=== PATIENT | female | born 1960 | race Caucasian/White ===

== ENCOUNTER 2017-11-01 12:41 | Emergency (ER) | payer MEDICARE, MEDICAID ==
[2017-11-01] MEDS ORDERED: Sodium Chloride 0.9% 10 ML Syringe FLUSH PRN (13:10)
--- NOTE | 2017-11-01 14:49 | EDM.PDOC ---
ED HPI GENERAL MEDICAL PROBLEM - General Chief Complaint: Skin Complaint Stated Complaint: ABSCESS Time Seen by Provider: 11/01/17 13:03 Source of Information: Reports: Patient, Provider History Limitations: Reports: Other (cognitive impairment ) - History of Present Illness INITIAL COMMENTS - FREE TEXT/NARRATIVE: 57 y/o F with hx cerebral palsy presents with R hip mass vs. abscess on MRI from clinic. Per caregiver, patient spends a lot of her time either seated or laying down due to mobility problems. Several months ago she had an ulcer under the R hip which seemed superficial and healed up. Recently, staff noticed there was a very firm mass under area of prior wound and it seemed painful to Sara. No fever. No weakness/fatigue/systemic symptoms. Dr. Bullock ordered a CT, which was abnormal and led to MRI, which was completed yesterday and showed a 5.9 x 3 x 5.9 cm mass, abscess vs. necrotic tumor. She was sent her for further evaluation. Hx limited by patient's cognitive impairment. - Related Data Allergies Allergy/AdvReac Type Severity Reaction Status Date / Time aspirin Allergy Other Verified 11/01/17 13:13 hydrochlorothiazide Allergy Other Verified 11/01/17 13:13 phenytoin sodium Allergy Other Verified 11/01/17 13:13 [From Dilantin] phenytoin sodium extended Allergy Other Verified 11/01/17 13:13 [From Dilantin] Home Meds: Home Meds Bisac-Evac 1 supp RECTAL DAILY PRN 11/01/17 [History] Calcium Carbonate [Oyster Shell Calcium] 500 mg PO TID 11/01/17 [History] Carbamide Peroxide [Murine Ear Drops] 6 drop EARBOTH WE 11/01/17 [History] Cholecalciferol (Vitamin D3) [Vitamin D3] 1 tab PO DAILY 11/01/17 [History] Cyanocobalamin (Vitamin B12) [Vitamin B12] 1 tab PO DAILY 11/01/17 [History] Erythromycin Base [Erythromycin 0.5% Ophth Oint] 1 drop EYEBOTH BEDTIME [History] Folic Acid/Mv,Fe,Other Min/Lut [Certa Plus] 1 tab PO DAILY 11/01/17 [History] Memantine HCl/Donepezil HCl [Namzaric 28 mg-10 mg Capsule] 1 tab PO DAILY [History] Omeprazole 1 tab PO DAILY 11/01/17 [History] PARoxetine HCl [Paroxetine HCl] 1 tab PO BEDTIME 11/01/17 [History] PEG 3350/Na Sulf,Bicarb,Cl/KCl [Peg 3350 Electrolyte] 17 gm PO Q72H 11/01/17 [ History] PHENobarbital [Phenobarbital] 1 tab PO BEDTIME 11/01/17 [History] PHENobarbital [Phenobarbital] 1 tab PO BEDTIME 11/01/17 [History] Senexon-S 2 tab PO BID 11/01/17 [History] levETIRAcetam [Keppra] 500 mg PO BID 11/01/17 [History] Past Medical History HEENT History: Reports: Other (See Below) Other HEENT History: conjunctivitis Cardiovascular History: Reports: Other (See Below) Other Cardiovascular History: immune thrombocytopenia, palpitations Respiratory History: Reports: Sleep Apnea, Other (See Below) Other Respiratory History: wears CPAP at night Gastrointestinal History: Reports: Gastritis MEASUREMENT ADVISOR History: Reports: Neurological History: Reports: Cerebral Palsy, Seizure Psychiatric History: Reports: Depression Endocrine/Metabolic History: Reports: Other (See Below) Other Endocrine/Metabolic History: thyroid nodule Other Dermatologic History: left finger amputation jones bite - Past Surgical History Musculoskeletal Surgical History: Reports: Other (See Below) Other Musculoskeletal Surgeries/Procedures:: finger and toe amputation due to exposure in 2007 Social & Family History - Tobacco Use Smoking Status *Q: Never Smoker - Caffeine Use Caffeine Use: Reports: None - Recreational Drug Use Recreational Drug Use: No ED ROS GENERAL - Review of Systems Review Of Systems: See Below Constitutional: Denies: Fever HEENT: Reports: No Symptoms Respiratory: Denies: Shortness of Breath Cardiovascular: Reports: No Symptoms Endocrine: Reports: No Symptoms GI/Abdominal: Reports: No Symptoms. Denies: Vomiting : Reports: No Symptoms Musculoskeletal: Reports: Leg Pain Skin: Reports: Lesions Neurological: Reports: No Symptoms Psychiatric: Reports: No Symptoms ED EXAM, SKIN/RASH Exam: See Below Exam Limited By: No Limitations General Appearance: Alert, WD/WN, No Apparent Distress Eye Exam: Bilateral Eye: Normal Inspection Ears: Normal External Exam Nose: Normal Inspection Throat/Mouth: Normal Inspection, Normal Oropharynx, Normal Voice Head: Atraumatic, Normocephalic Neck: Normal Inspection, Supple Respiratory/Chest: No Respiratory Distress Cardiovascular: Normal Peripheral Pulses GI/Abdominal: Soft, Non-Tender, No Distention. No: Rebound Back Exam: Normal Inspection Extremities: Other (RLE: small gluteal area skin abnormality - appears to be area of scarring, mildly erythematous, appears to be well-healed, no discharge or fluctuance. +underlying firm mass/induration. tender. No additional lower extremity abnormality. ) Course - Vital Signs Last Recorded V/S: Last Vital Signs Temp 36.9 C 11/01/17 13:10 Pulse 80 11/01/17 16:47 Resp 18 11/01/17 16:47 BP 120/84 11/01/17 16:47 Pulse Ox 99 11/01/17 16:47 - Orders/Labs/Meds Orders: Active Orders 24 hr Category Date Time Status Peripheral IV Care [RC] . DIRECTED Care 11/01/17 13:10 Active Peripheral IV Care [RC] . DIRECTED Care 11/01/17 13:10 Active Peripheral IV Insertion Adult [OM.PC] Routine Oth 11/01/17 13:10 Ordered Labs: Laboratory Tests 11/01/17 11/01/17 11/01/17 Range/Units 13:40 13:40 13:40 WBC 4.40 (3.98-10.04) K/mm3 RBC 4.30 (3.98-5.22) M/mm3 Hgb 13.3 (11.2-15.7) gm/L Hct 39.7 (34.1-44.9) % MCV 92.3 (79.4-94.8) fl MCH 30.9 (25.6-32.2) pg MCHC 33.5 (32.2-35.5) g/dl RDW Std Deviation 41.7 (36.4-46.3) fL Plt Count 125 L (182-369) K/mm3 MPV 10.5 (9.4-12.3) fl Neut % (Auto) 50.3 (34.0-71.1) % Lymph % (Auto) 38.0 (19.3-51.7) % [place] % (Auto) 9.3 (4.7-12.5) % Eos % (Auto) 2.0 (0.7-5.8) Baso % (Auto) 0.2 (0.1-1.2) % Neut # (Auto) 2.21 (1.56-6.13) K/mm3 Lymph # (Auto) 1.67 (1.18-3.74) K/mm3 [place] # (Auto) 0.41 H (0.24-0.36) K/mm3 Eos # (Auto) 0.09 (0.04-0.36) K/mm3 Baso # (Auto) 0.01 (0.01-0.08) K/mm3 ESR 14 (0-20) mm/hr PT 10.8 (9.5-12.1) SECONDS INR 0.99 Sodium (136-145) mEq/L Potassium (3.5-5.1) mEq/L Chloride (98-107) mEq/L Carbon Dioxide (21-32) mEq/L Anion Gap (5-15) BUN (7-18) mg/dL Creatinine (0.55-1.02) mg/dL Est Cr Clr Drug Dosing mL/min Estimated GFR (MDRD) (>60) mL/min BUN/Creatinine Ratio (14-18) Glucose (74-106) mg/dL Calcium (8.5-10.1) mg/dL Magnesium (1.8-2.4) mg/dl Total Bilirubin (0.2-1.0) mg/dL AST (15-37) U/L ALT (14-59) U/L Alkaline Phosphatase (46-116) U/L C-Reactive Protein (<1.0) mg/dL Total Protein (6.4-8.2) g/dl Albumin (3.4-5.0) g/dl Globulin gm/dL Albumin/Globulin Ratio (1-2) Blood Type Gel Antibody Screen 11/01/17 11/01/17 Range/Units 13:40 13:40 WBC (3.98-10.04) K/mm3 RBC (3.98-5.22) M/mm3 Hgb (11.2-15.7) gm/L Hct (34.1-44.9) % MCV (79.4-94.8) fl MCH (25.6-32.2) pg MCHC (32.2-35.5) g/dl RDW Std Deviation (36.4-46.3) fL Plt Count (182-369) K/mm3 MPV (9.4-12.3) fl Neut % (Auto) (34.0-71.1) % Lymph % (Auto) (19.3-51.7) % [place] % (Auto) (4.7-12.5) % Eos % (Auto) (0.7-5.8) Baso % (Auto) (0.1-1.2) % Neut # (Auto) (1.56-6.13) K/mm3 Lymph # (Auto) (1.18-3.74) K/mm3 [place] # (Auto) (0.24-0.36) K/mm3 Eos # (Auto) (0.04-0.36) K/mm3 Baso # (Auto) (0.01-0.08) K/mm3 ESR (0-20) mm/hr PT (9.5-12.1) SECONDS INR Sodium 144 (136-145) mEq/L Potassium 3.9 (3.5-5.1) mEq/L Chloride 104 (98-107) mEq/L Carbon Dioxide 35 H (21-32) mEq/L Anion Gap 8.9 (5-15) BUN 13 (7-18) mg/dL Creatinine 1.0 (0.55-1.02) mg/dL Est Cr Clr Drug Dosing 60.36 mL/min Estimated GFR (MDRD) 57 (>60) mL/min BUN/Creatinine Ratio 13.0 L (14-18) Glucose 77 (74-106) mg/dL Calcium 9.6 (8.5-10.1) mg/dL Magnesium 2.0 (1.8-2.4) mg/dl Total Bilirubin 0.3 (0.2-1.0) mg/dL AST 8 L (15-37) U/L ALT 18 (14-59) U/L Alkaline Phosphatase 128 H (46-116) U/L C-Reactive Protein 0.6 (<1.0) mg/dL Total Protein 7.6 (6.4-8.2) g/dl Albumin 4.0 (3.4-5.0) g/dl Globulin 3.6 gm/dL Albumin/Globulin Ratio 1.1 (1-2) Blood Type O NEGATIVE Gel Antibody Screen Negative Meds: Medications Discontinued Medications Generic Name Dose Route Start Last Admin Trade Name Freq PRN Reason Stop Dose Admin Sodium Chloride 10 ml 11/01/17 13:10 11/01/17 14:08 Saline Flush FLUSH 10 ml ASDIRECTED PRN Administration Keep Vein Open - Re-Assessments/Exams Free Text/Narrative Re-Assessment/Exam: 11/01/17 18:[address] Walton who was concerned about depth of mass and proximity to hip joint and lack of skin wound suggesting that origin of abnormalit may actually be the hip. Called [facility] (we don't have orthopedics coverage today) and their orthopedist reviewed the case and declined to accept the patient stating that since the bone was uninvolved it wasn't appropriate for his service. Discussed with [facility] surgeon who suggested possible IR eval. Discussed with IR attending who agreed that biopsy was reasonable next step, unable to schedule at this time as staff has left for the weekend. Meanwhile, patient is well appearing, has normal vitals, and negative inflammatory markers with WBC 4 and CRP 0.6. No evidence of systemic infection. This problem has likely been brewing for weeks to months. She doesn' t need antibiotics at this time. Re-discussed with Dr. Bullock, provided update , she will place order in [facility] system for IR eval/biopsy. Departure - Departure Time of Disposition: 15:59 Disposition: Home, Self-Care 01 Clinical Impression: Localized swelling, mass and lump, lower limb Qualifiers: Laterality: right Qualified Code(s): R22.41 - Localized swelling, mass and lump , right lower limb - Discharge Information Referrals: Elly Bullock MD [Primary Care Provider] - Forms: ED Department Discharge Additional Instructions: 1. Follow up with Dr. Bullock for further care, including scheduling Interventional Radiology follow up in [place] for aspiration and possible biopsy of R hip mass. Interventional Radiology is unable to schedule the appointment at this time because their scheduling team is gone until Saturday. Dr. Bullock will need to place an order and then the Interventional Radiology team will call to schedule. 2. Return if Sara has worsening swelling, pain, fever, or other concerning symptoms. - My Orders Last 24 Hours: My Active Orders 11/01/17 13:10 Peripheral IV Care [RC] . DIRECTED Peripheral IV Care [RC] . DIRECTED Peripheral IV Insertion Adult [OM.PC] Routine - Assessment/Plan Last 24 Hours: My Active Orders 11/01/17 13:10 Peripheral IV Care [RC] . DIRECTED Peripheral IV Care [RC] . DIRECTED Peripheral IV Insertion Adult [OM.PC] Routine
[2017-11-01 16:47] VITALS: BP 120/84
== END 2017-11-01 16:40 | disposition home or self-care (01) ==
LOC: JD.ED 12:41
DX: R22.41 Localized swelling, mass and lump, right lower limb (principal); Z88.6 Allergy status to analgesic agent; Z88.8 Allergy status to other drugs, medicaments and biological substances; Z79.899 Other long term (current) drug therapy
CPT/HCPCS: 36415; 80053; 83735; 85025; 85610; 85652; 86140; 86850; 86900; 86901; 99283; J7050

== ENCOUNTER 2018-08-28 15:37 | Emergency (ER) | payer MEDICARE, MEDICAID ==
[2018-08-28 16:04] VITALS: BP 112/77
--- NOTE | 2018-08-28 18:04 | EDM.PDOC ---
ED HPI GENERAL MEDICAL PROBLEM - General Chief Complaint: ENT Problem Stated Complaint: ABSCESS TOOTH AND FEVER Time Seen by Provider: 08/28/18 17:30 - History of Present Illness INITIAL COMMENTS - FREE TEXT/NARRATIVE: Patient is brought into the emergency room by one of her care nurses. She complains of dental pain. She complains of right upper dental pain getting worse over the last couple of days. She has follow-up with her dentist tomorrow morning. She's developing a little bit of right facial swelling. She was seen in minor care yesterday started on amoxicillin. She may have had a fever of approximately 101 at her halfway[address] Treatments TEST TECHNICIAN: Reports: Acetaminophen - Related Data Allergies Allergy/AdvReac Type Severity Reaction Status Date / Time aspirin Allergy Other Verified 08/28/18 16:04 hydrochlorothiazide Allergy Other Verified 08/28/18 16:04 phenytoin sodium Allergy Other Verified 08/28/18 16:04 [From Dilantin] phenytoin sodium extended Allergy Other Verified 08/28/18 16:04 [From Dilantin] Home Meds: Home Meds Bisac-Evac 1 supp RECTAL DAILY PRN 11/01/17 [History] Calcium Carbonate [Oyster Shell Calcium] 500 mg PO TID 11/01/17 [History] Carbamide Peroxide [Murine Ear Drops] 6 drop EARBOTH WE 11/01/17 [History] Cholecalciferol (Vitamin D3) [Vitamin D3] 1 tab PO DAILY 11/01/17 [History] Cyanocobalamin (Vitamin B12) [Vitamin B12] 1 tab PO DAILY 11/01/17 [History] Erythromycin Base [Erythromycin 0.5% Ophth Oint] 1 drop EYEBOTH BEDTIME [History] Folic Acid/Mv,Fe,Other Min/Lut [Certa Plus] 1 tab PO DAILY 11/01/17 [History] Memantine HCl/Donepezil HCl [Namzaric 28 mg-10 mg Capsule] 1 tab PO DAILY [History] Omeprazole 1 tab PO DAILY 11/01/17 [History] PARoxetine HCl [Paroxetine HCl] 1 tab PO BEDTIME 11/01/17 [History] PEG 3350/Na Sulf,Bicarb,Cl/KCl [Peg 3350 Electrolyte] 17 gm PO Q72H 11/01/17 [ History] PHENobarbital [Phenobarbital] 1 tab PO BEDTIME 11/01/17 [History] PHENobarbital [Phenobarbital] 1 tab PO BEDTIME 11/01/17 [History] Senexon-S 2 tab PO BID 11/01/17 [History] levETIRAcetam [Keppra] 500 mg PO BID 11/01/17 [History] Acetaminophen/HYDROcodone [Bartley 325-5 MG] 1 tab PO Q6H PRN #15 tablet 08/28/18 [Rx] Past Medical History HEENT History: Reports: Other (See Below) Other HEENT History: conjunctivitis Cardiovascular History: Reports: Other (See Below) Other Cardiovascular History: immune thrombocytopenia, palpitations Respiratory History: Reports: Sleep Apnea, Other (See Below) Other Respiratory History: wears CPAP at night Gastrointestinal History: Reports: Gastritis CLINICAL ASSOCIATE History: Reports: Neurological History: Reports: Cerebral Palsy, Seizure Psychiatric History: Reports: Depression Endocrine/Metabolic History: Reports: Other (See Below) Other Endocrine/Metabolic History: thyroid nodule Other Dermatologic History: left finger amputation jones bite - Past Surgical History Musculoskeletal Surgical History: Reports: Other (See Below) Other Musculoskeletal Surgeries/Procedures:: finger and toe amputation due to exposure in 2007 Social & Family History - Caffeine Use Caffeine Use: Reports: None ED ROS ENT - Review of Systems Review Of Systems: See Below Constitutional: Reports: Fever. Denies: Chills HEENT: Reports: Dental Pain Respiratory: Reports: No Symptoms Cardiovascular: Reports: No Symptoms GI/Abdominal: Reports: No Symptoms : Reports: No Symptoms Neurological: Reports: No Symptoms ED EXAM, ENT - Physical Exam Exam: See Below Exam Limited By: Other (Developmental delay) General Appearance: Alert, No Apparent Distress Ears: Normal External Exam, Normal Canal Nose: Normal Inspection Mouth/Throat: Other (She has some swelling along the right outer gumline upper. She has a draining abscess at the posterior aspect of the tooth involved this is exquisitely tender to touch nothing left to drain at this point) Head: Other (Mild right-sided facial swelling) Respiratory/Chest: No Respiratory Distress, Lungs Clear, Normal Breath Sounds Cardiovascular: Regular Rate, Rhythm, No Edema, No Murmur GI/Abdominal: Normal Bowel Sounds, Soft, Non-Tender Course - Vital Signs Last Recorded V/S: Last Vital Signs Temp 36.7 C 03/07/19 15:57 Pulse 85 08/28/18 15:57 Resp 18 08/28/18 15:57 BP 112/77 08/28/18 15:57 Pulse Ox 97 08/28/18 15:57 - Orders/Labs/Meds Meds: Medications Discontinued Medications Generic Name Dose Route Start Last Admin Trade Name Freq PRN Reason Stop Dose Admin Hydrocodone Bitart/Acetaminophen 1 tab 08/28/18 18:16 08/28/18 18:30 Bartley 325-5 Mg PO 08/28/18 18:17 1 tab ONETIME ONE Administration Ceftriaxone Sodium 1 gm 08/28/18 18:16 08/28/18 18:30 Rocephin IM 08/28/18 18:17 1 gm ONETIME ONE Administration - Re-Assessments/Exams Free Text/Narrative Re-Assessment/Exam: 08/28/18 19:26 Patient has had one Bartley by mouth and his received a gram of Rocephin IM she feels better she may have a little more facial erythema but this is a subtle change from it coming in. She would like to go home at this point and she is comfortable going home her nurse is comfortable taking her home the agree to follow-up with the dentist tomorrow morning as scheduled return to the emergency room with any questions problems or worsening condition. Departure - Departure Time of Disposition: 19:27 Disposition: Home, Self-Care 01 Clinical Impression: Dental abscess - Discharge Information Prescriptions: Acetaminophen/HYDROcodone [Bartley 325-5 MG] 1 tab PO Q6H PRN #15 tablet PRN Reason: Pain Instructions: Dental Abscess, [id number] Referrals: Elly Bullock MD [Primary Care Provider] - Forms: ED Department Discharge Additional Instructions: Return to emergency room if any questions problems worsening symptoms. Use the Bartley as needed for discomfort. Follow-up with the dentist first thing tomorrow morning as scheduled
[2018-08-28] MEDS ORDERED: Acetaminophen/HYDROcodone 325-5 MG Tab PO ONE (18:16)
[2018-08-28] MEDS ORDERED: cefTRIAXone 1 GM Vial IM ONE (18:16)
== END 2018-08-28 19:50 | disposition home or self-care (01) ==
LOC: JD.ED 15:37
DX: K04.7 Periapical abscess without sinus (principal); F32.9 Major depressive disorder, single episode, unspecified; Z79.899 Other long term (current) drug therapy; Z88.6 Allergy status to analgesic agent; Z88.8 Allergy status to other drugs, medicaments and biological substances
CPT/HCPCS: 96372; 99283; A9270; J0696

== ENCOUNTER 2019-08-17 10:48 | Day surgery (SDC) | payer MEDICARE, MEDICAID ==
[~2019-08-17 10:48] MED LIST: Lactated Ringers 1,000 ML IV SCH; Lidocaine 1%/Sod Bicarbonate in NS 8.4% 1 ML Syringe IDERM PRN; Sodium Chloride 0.9% 10 ML Syringe FLUSH PRN
--- NOTE | 2019-08-17 11:13 | PCM.PREANE ---
Preanesthetic Assessment - Anesthesia/Transfusion/Family Hx Anesthesia History: Prior Anesthesia Without Reaction (hx given by Vasquez) Transfusion History: No Prior Transfusion(s) - Review of Systems General: No Symptoms Pulmonary: No Symptoms Cardiovascular: No Symptoms Gastrointestinal: No Symptoms Neurological: No Symptoms Other: Reports: None - Physical Assessment NPO Status Date: 08/17/19 NPO Status Time: 04:00 ASA Class: 2 Mental Status: Alert & Oriented x3 Airway Class: Mallampati = 1 Dentition: Reports: Normal Dentition Thyro-Mental Finger Breadths: 3 Mouth Opening Finger Breadths: 3 ROM/Head Extension: Full Lungs: Clear to Auscultation, Normal Respiratory Effort - Allergies Allergies/Adverse Reactions: Allergies Allergy/AdvReac Type Severity Reaction Status Date / Time aspirin Allergy Other Verified 08/14/19 12:08 hydrochlorothiazide Allergy Other Verified 08/14/19 12:08 phenytoin sodium Allergy Other Verified 08/14/19 12:08 [From Dilantin] phenytoin sodium extended Allergy Other Verified 08/14/19 12:08 [From Dilantin] - Acknowledgements Anesthesia Type Planned: MAC Pt an Appropriate Candidate for the Planned Anesthesia: Yes Alternatives and Risks of Anesthesia Discussed w Pt/Guardian: Yes Pt/Guardian Understands and Agrees with Anesthesia Plan: Yes PreAnesthesia Questionnaire HEENT History: Reports: Other (See Below) Other HEENT History: conjunctivitis Cardiovascular History: Reports: Other (See Below) Other Cardiovascular History: immune thrombocytopenia, palpitations Respiratory History: Reports: Sleep Apnea, SOB, Other (See Below) Other Respiratory History: wears CPAP at night Gastrointestinal History: Reports: Gastritis, Other (See Below) Other Gastrointestinal History: della agarwal syndrome Genitourinary History: Reports: None FAMILY LIFE COUNSELOR History: Reports: Musculoskeletal History: Reports: Other (See Below) Other Musculoskeletal History: wheelchair dependent, 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, fibula fracture with repair, hand injury Neurological History: Reports: Cerebral Palsy, Seizure (last documented seizure ), Other (See Below) Other Neuro History: sierra syndrome, memory difficulties,right sided weakness Psychiatric History: Reports: Depression Endocrine/Metabolic History: Reports: Other (See Below) Other Endocrine/Metabolic History: thyroid nodule Hematologic History: 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 Immunologic History: Reports: None Oncologic (Cancer) History: Reports: None Other Dermatologic History: left finger amputation jones bite, right hip pressure ulcer stage II - Past Surgical History Head Surgeries/Procedures: Reports: None Respiratory Surgical History: Reports: None GI Surgical History: Reports: Colonoscopy, EGD Female Surgical History: Reports: Breast Biopsy, Tubal Ligation Male Surgical History: Reports: None Musculoskeletal Surgical History: Reports: Other (See Below) Other Musculoskeletal Surgeries/Procedures:: left thumb amputation, left ankle fracture with surgical repair, right shoulder surgery right foot surgery Oncologic Surgical History: Reports: None - SUBSTANCE USE Smoking Status *Q: Never Smoker Recreational Drug Use History: No - HOME MEDS Home Medications: Home Meds Calcium Carbonate [Oyster Shell Calcium] 500 mg PO TID 11/01/17 [History] Carbamide Peroxide [Murine Ear Drops] 6 drop EARBOTH WE 11/01/17 [History] Cholecalciferol (Vitamin D3) [Vitamin D3] 1,000 unit PO DAILY 11/01/17 [History] Erythromycin Base [Erythromycin 0.5% Ophth Oint] 1 drop EYEBOTH BEDTIME [History] Memantine HCl/Donepezil HCl [Namzaric 28 mg-10 mg Capsule] 1 tab PO BEDTIME 05/11 [History] Omeprazole 1 tab PO DAILY PRN 11/01/17 [History] PARoxetine HCl [Paroxetine HCl] 30 mg PO BEDTIME 11/01/17 [History] PHENobarbitaL [Phenobarbital] 64.8 mg PO BEDTIME 11/01/17 [History] PHENobarbitaL [Phenobarbital] 97.2 mg PO BEDTIME 11/01/17 [History] levETIRAcetam [Keppra] 500 mg PO BID 11/01/17 [History] Acetaminophen [Tylenol] 650 mg PO Q4H PRN 08/14/19 [History] Cyanocobalamin (Vitamin B-12) [Vitamin B-12] 1,000 mcg PO DAILY 08/14/19 [ History] Latanoprost 1 drop EYEBOTH DAILY 08/14/19 [History] Multivitamin [Daily Keaton] 1 tab PO DAILY 08/14/19 [History] Vortioxetine Hydrobromide [Trintellix] 20 mg PO DAILY 08/14/19 [History] bisacodyL [Dulcolax] 10 mg RECTAL DAILY PRN 02/21/20 [History] polyethylene glycoL 3350 [MiraLAX] 1 dose PO Q72H 08/14/19 [History] - CURRENT (IN HOUSE) MEDS Current Meds: Current Medications Lactated Ringer's (Ringers, Lactated) 1,000 mls @ 125 mls/hr IV ASDIRECTED TERRANCE Stop: 08/17/19 23:00 Lidocaine/Sodium Bicarbonate (Buffered Lidocaine 1% In Ns 8.4%) 0.25 ml IDERM ONETIME PRN PRN Reason: Prior to IV Start Stop: 08/17/19 18:00 Sodium Chloride (Saline Flush) 10 ml FLUSH ASDIRECTED PRN PRN Reason: Keep Vein Open Stop: 08/17/19 18:00
[2019-08-17] MEDS ORDERED: Propofol 200 MG/20 ML SDV ONE ×2 (11:16→11:17)
--- NOTE | 2019-08-17 12:49 | PCM48HPAN ---
Post Anesthesia Note - EVALUATION WITHIN 48HRS OF ANESTHETIC Vital Signs in Normal Range: Yes Patient Participated in Evaluation: Yes Respiratory Function Stable: Yes Airway Patent: Yes Cardiovascular Function Stable: Yes Hydration Status Stable: Yes Pain Control Satisfactory: Yes Nausea and Vomiting Control Satisfactory: Yes Mental Status Recovered: Yes Vital Signs: Last Vital Signs Temp 36.7 C 08/17/19 10:50 Pulse 69 08/17/19 10:50 Resp 16 08/17/19 10:50 BP 146/87 H 08/17/19 10:50 Pulse Ox 98 08/17/19 10:50
[2019-08-17 13:12] VITALS: BP 129/78; PULSE 64
--- NOTE | 2019-08-17 13:40 | PROC ---
DATE OF OPERATION: 08/17/2019 SURGEON: Jez Ponce MD PREOPERATIVE DIAGNOSIS: Need for screening colonoscopy. POSTOPERATIVE DIAGNOSIS: Melanosis coli. PROCEDURE: Colonoscopy. ANESTHESIA: Monitored anesthesia care. COMPLICATION: None. INDICATION: The patient is a 59-year-old female who presented to clinic for evaluation for screening colonoscopy. The patient has cerebral palsy and seizures. She was evaluated in clinic and deemed appropriate for screening colonoscopy. Informed consent was obtained from the burr sander after discussing risks, benefits, and alternatives. DETAILS OF PROCEDURE: The patient was taken to the procedure room, placed in left lateral decubitus position. Following induction of monitored anesthesia care, we began the procedure with a perianal examination, which was normal. Digital rectal exam was normal. The scope was inserted and taken all the way to the cecum. Ileocecal valve as well as the appendiceal orifice were photographed. There was extensive melanosis coli at the cecum, extending all the way to the sigmoid colon. Biopsy was taken of the cecum for confirmation. Then, examination of the entire colon with colonoscopy with careful viewing of the colonic mucosa did not reveal any polyps. Prep was good enough to be able to identify any small polyps. Retroflexion in the rectum did not reveal any abnormalities. Air was suctioned from the colon, and the colonoscopy was concluded with removal of the scope from the colon. This marked the end of the procedure. The patient will be observed for a few hours and discharged back to her alf today. Recommendation is for her to follow up with another colonoscopy in 10 years since this colonoscopy was normal. We will call her with confirmation of melanosis coli. If this is confirmed, the patient will be advised to continue to use laxative only if necessary since melanosis coli is a benign condition. MMODAL /[id number] TEO
== END 2019-08-17 13:49 | disposition home or self-care (01) ==
LOC: JD.SDS 10:48
PROVIDERS: ATTEND Surgery
DX: Z12.11 Encounter for screening for malignant neoplasm of colon (principal); K63.89 Other specified diseases of intestine; G80.9 Cerebral palsy, unspecified; R56.9 Unspecified convulsions; F32.9 Major depressive disorder, single episode, unspecified; G47.33 Obstructive sleep apnea (adult) (pediatric); D69.3 Immune thrombocytopenic purpura; Z99.89 Dependence on other enabling machines and devices; Z98.890 Other specified postprocedural states; Z79.899 Other long term (current) drug therapy; Z88.8 Allergy status to other drugs, medicaments and biological substances
CPT/HCPCS: 36415; 45380; 85025; J2704; J7120; 00812

== ENCOUNTER 2019-10-13 15:05 | Inpatient (IN) | payer MEDICARE, MEDICAID ==
[2019-10-13] MEDS ORDERED: Docusate Sodium 100 MG Cap PO PRN (15:49)
[2019-10-13] MEDS ORDERED: Sodium Chloride 0.9% 10 ML Syringe FLUSH PRN (15:49)
[2019-10-13] MEDS ORDERED: Piperacillin/Tazobactam 4.5 GM in Sodium Chloride 0.9% 100 ML IV ONE (16:30)
[2019-10-13] MEDS ORDERED: Piperacillin/Tazobactam 4.5 GM in Sodium Chloride 0.9% 100 ML IV SCH (16:30)
[2019-10-13] MEDS ORDERED: Bisacodyl 10 MG Supp RECTAL PRN (16:48)
[2019-10-13] MEDS ORDERED: Pantoprazole 40 MG Tab.CR PO PRN (16:48)
[2019-10-13] MEDS ORDERED: Magnesium Hydroxide 400 MG/5 ML Susp 30 ML Cup PO PRN (16:48)
[2019-10-13] MEDS ORDERED: Polyethylene Glycol 3350 Powder 17 GM Packet PO SCH (17:00)
[2019-10-13] MEDS ORDERED: guaiFENesin/Dextromethorphan 100-10 MG/5 ML Soln 5 ML Cup PO PRN (17:14)
--- NOTE | 2019-10-13 17:27 | PCM.HP.2 ---
H&P History of Present Illness - General Date of Service: 10/13/19 Admit Problem/Dx: Admission Diagnosis/Problem Admission Diagnosis/Problem Wound abscess Source of Information: Patient History Limitations: Reports: Altered Mental Status - History of Present Illness Initial Comments - Free Text/Narative: The patient developed a left hip wound 2 weeks ago. I saw the patient in my office and found that she had a phlegmon in the left hip. I initiated her on antibiotics. However, the patient's wound worsened. She came to see me today, she had an abscess in the area. I&D was performed in the office and the patient is admitted for IV antibiotics. Onset of Symptoms: Reports: Gradual Duration of Symptoms: Reports: Getting Worse Location: Reports: Lower Extremity, Left Quality: Reports: Ache, Sharp Severity: Severe Improves with: Reports: Immobilization Worsens with: Reports: Other (touch), Movement Associated Symptoms: Reports: No Other Symptoms - Related Data Allergies/Adverse Reactions: Allergies Allergy/AdvReac Type Severity Reaction Status Date / Time aspirin Allergy Other Verified 08/14/19 12:08 hydrochlorothiazide Allergy Other Verified 08/14/19 12:08 phenytoin sodium Allergy Other Verified 08/14/19 12:08 [From Dilantin] phenytoin sodium extended Allergy Other Verified 08/14/19 12:08 [From Dilantin] Home Medications: Home Meds Calcium Carbonate [Oyster Shell Calcium] 500 mg PO TID 11/01/17 [History] Carbamide Peroxide [Murine Ear Drops] 6 drop EARBOTH WE 11/01/17 [History] Cholecalciferol (Vitamin D3) [Vitamin D3] 1,000 unit PO DAILY 11/01/17 [History] Erythromycin Base [Erythromycin 0.5% Ophth Oint] 1 drop EYEBOTH BEDTIME [History] Memantine HCl/Donepezil HCl [Namzaric 28 mg-10 mg Capsule] 1 tab PO BEDTIME 05/11 [History] Omeprazole 1 tab PO DAILY PRN 11/01/17 [History] PARoxetine HCL [Paroxetine HCl] 30 mg PO BEDTIME 11/01/17 [History] PHENobarbitaL [Phenobarbital] 64.8 mg PO BEDTIME 11/01/17 [History] PHENobarbitaL [Phenobarbital] 97.2 mg PO BEDTIME 11/01/17 [History] levETIRAcetam [Keppra] 500 mg PO BID 11/01/17 [History] Acetaminophen [Tylenol] 650 mg PO Q4H PRN 08/14/19 [History] Cyanocobalamin (Vitamin B-12) [Vitamin B-12] 1,000 mcg PO DAILY 08/14/19 [ History] Latanoprost 1 drop EYEBOTH BEDTIME 08/14/19 [History] bisacodyL [Dulcolax] 10 mg RECTAL DAILY PRN 08/14/19 [History] polyethylene glycoL 3350 [MiraLAX] 1 dose PO Q72H 08/14/19 [History] Dextromethorphan/guaiFENesin [Robitussin DM] 20 ml PO Q6H PRN 10/13/19 [History] Mag Hydrox/Aluminum Hyd/Simeth [Mylanta Maximum Strength Liq] 2 - 4 tsp PO Q2HR PRN 10/13/19 [History] Magnesium Hydroxide [Milk of Magnesia] 2 - 4 tbsp PO DAILY PRN 10/13/19 [History ] Multivits w-Min/Ferrous Gluc [Certavite-Antioxidant Liquid] 1 tab PO DAILY 10/12 [History] Pseudoephedrine [Sudogest] 1 tab PO Q4HR PRN 10/13/19 [History] Sennosides/Docusate Sodium [Senna-S 8.6-50 mg Tablet] 17.2 mg PO BID 10/13/19 [ History] Sulfamethoxazole/Trimethoprim [Bactrim Ds Tablet] 1 tab PO BID 10/13/19 [History ] Past Medical History HEENT History: Reports: Other (See Below) Other HEENT History: conjunctivitis Cardiovascular History: Reports: Other (See Below) Other Cardiovascular History: immune thrombocytopenia, palpitations Respiratory History: Reports: Sleep Apnea, SOB, Other (See Below) Other Respiratory History: wears CPAP at night Gastrointestinal History: Reports: Gastritis, Other (See Below) Other Gastrointestinal History: della agarwal syndrome Genitourinary History: Reports: None [employer] History: Reports: Musculoskeletal History: Reports: Other (See Below) Other Musculoskeletal History: wheelchair dependent, 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, fibula fracture with repair, hand injury Neurological History: Reports: Cerebral Palsy, Seizure, Other (See Below) Other Neuro History: sierra syndrome, memory difficulties,right sided weakness Psychiatric History: Reports: Dementia, Depression Endocrine/Metabolic History: Reports: Other (See Below) Other Endocrine/Metabolic History: thyroid nodule Hematologic History: 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 Immunologic History: Reports: None Oncologic (Cancer) History: Reports: None Other Dermatologic History: left fingers amputation jones bite, right hip pressure ulcer stage II - Infectious Disease History Infectious Disease History: Reports: Measles - Past Surgical History Head Surgeries/Procedures: Reports: None HEENT Surgical History: Reports: None Cardiovascular Surgical History: Reports: None Respiratory Surgical History: Reports: None GI Surgical History: Reports: Colonoscopy, EGD Female Surgical History: Reports: Breast Biopsy, Tubal Ligation Endocrine Surgical History: Reports: None Neurological Surgical History: Reports: None Musculoskeletal Surgical History: Reports: Other (See Below) Other Musculoskeletal Surgeries/Procedures:: left digits all amputated, left ankle fracture with surgical repair, right shoulder surgery right foot surgery Oncologic Surgical History: Reports: None Social & Family History - Family History Family Medical History: Noncontributory - Tobacco Use Smoking Status *Q: Former Smoker Years of Tobacco use: 5 Packs/Tins Daily: 0.5 Used Tobacco, but Quit: Yes Month/Year Tobacco Last Used: 06/1974 Second Hand Smoke Exposure: No - Caffeine Use Caffeine Use: Reports: Coffee - Recreational Drug Use Recreational Drug Use: No H&P Review of Systems - Review of Systems: Review Of Systems: See Below General: Reports: No Symptoms HEENT: Reports: No Symptoms Pulmonary: Reports: No Symptoms Cardiovascular: Reports: No Symptoms Gastrointestinal: Reports: No Symptoms Genitourinary: Reports: No Symptoms Musculoskeletal: Reports: No Symptoms Skin: Reports: Erythema (left hip), Wound (left hip) Psychiatric: Reports: No Symptoms Neurological: Reports: No Symptoms Exam - Exam Exam: See Below - Vital Signs Vital Signs: Last Vital Signs Temp 97.7 F 10/13/19 15:26 Pulse 59 L 10/13/19 15:50 Resp BP 124/83 10/13/19 15:22 Pulse Ox 92 L 10/13/19 15:50 Weight: 63.231 kg - Exam General: Alert, Other (largely non-verbal) Lungs: Clear to Auscultation, Normal Respiratory Effort Cardiovascular: Regular Rate, Regular Rhythm, Normal S1, Normal S2 GI/Abdominal Exam: Soft, Non-Tender, No Organomegaly, No Distention Skin: Wound (left hip, erythema, induration, packed wound. Induration is 10 x 10 cm.) - Patient Data Lab Results Last 24 hrs: Laboratory Results - last 24 hr 10/13/19 Range/Units 16:53 WBC 6.01 (3.98-10.04) K/mm3 RBC 3.62 L (3.98-5.22) M/mm3 Hgb 11.2 D (11.2-15.7) gm/dl Hct 34.7 (34.1-44.9) % MCV 95.9 H (79.4-94.8) fl MCH 30.9 (25.6-32.2) pg MCHC 32.3 (32.2-35.5) g/dl RDW Std Deviation 41.8 (36.4-46.3) fL Plt Count 231 D (182-369) K/mm3 MPV 9.5 (9.4-12.3) fl Neut % (Auto) 59.1 (34.0-71.1) % Lymph % (Auto) 30.9 (19.3-51.7) % [place] % (Auto) 6.7 (4.7-12.5) % Eos % (Auto) 2.7 (0.7-5.8) Baso % (Auto) 0.3 (0.1-1.2) % Neut # (Auto) 3.55 (1.56-6.13) K/mm3 Lymph # (Auto) 1.86 (1.18-3.74) K/mm3 [place] # (Auto) 0.40 H (0.24-0.36) K/mm3 Eos # (Auto) 0.16 (0.04-0.36) K/mm3 Baso # (Auto) 0.02 (0.01-0.08) K/mm3 Result Diagrams: 10/13/19 16:53 Sepsis Event Note - Focused Exam Vital Signs: Vital Signs Temp Pulse BP Pulse Ox 10/13/19 15:50 59 L 92 L 10/13/19 15:26 97.7 F 10/13/19 15:22 124/83 Date Exam was Performed: 10/13/19 Time Exam was Performed: 17:21 Problem List Initiated/Reviewed/Updated: No Orders Last 24hrs: Active Orders 24 hr Category Date Time Status Patient Status [ADT] Routine ADT 10/13/19 15:49 Active Antiembolic Devices [RC] BID Care 10/13/19 15:54 Active Intake and Output [RC] 04,16 Care 10/13/19 15:51 Active Oxygen Therapy [RC] PRN Care 10/13/19 15:49 Active VTE/DVT Education [RC] BID Care 10/13/19 15:49 Active Vital Signs [RC] Q4HR Care 10/13/19 15:49 Active Wound Care [RC] 04,,, Care 10/14/19 08:00 Active Regular Diet [DIET] Diet 10/13/19 Dinner Active CBC WITH AUTO DIFF [HEME] DAILY Lab 10/14/19 15:49 Ordered CBC WITH AUTO DIFF [HEME] DAILY Lab 10/15/19 15:49 Ordered CBC WITH AUTO DIFF [HEME] DAILY Lab 10/16/19 15:49 Ordered CBC WITH AUTO DIFF [HEME] DAILY Lab 10/17/19 15:49 Ordered COMPREHENSIVE METABOLIC PN,CMP [CHEM] DAILY Lab 10/13/19 16:53 Received COMPREHENSIVE METABOLIC PN,CMP [CHEM] DAILY Lab 10/14/19 16:00 Ordered COMPREHENSIVE METABOLIC PN,CMP [CHEM] DAILY Lab 10/15/19 16:00 Ordered COMPREHENSIVE METABOLIC PN,CMP [CHEM] DAILY Lab 10/16/19 16:00 Ordered COMPREHENSIVE METABOLIC PN,CMP [CHEM] DAILY Lab 10/17/19 16:00 Ordered Acetaminophen/HYDROcodone [[place] 325-5 MG] Med 10/13/19 15:49 Active 1 tab PO Q4H PRN Cholecalciferol (Vitamin D3) [Vitamin D3] Med 10/14/19 09:00 Active 25 mcg PO DAILY Cyanocobalamin (Vitamin B12) [Vitamin B12] Med 10/14/19 09:00 Active 1,000 mcg PO DAILY D5 1/2 NS w/ 20 mEq/L KCl 1,000 ml Med 10/13/19 16:15 Active IV ASDIRECTED Dextromethorphan/guaiFENesin [Robitussin DM] Med 10/13/19 17:14 Active 10 ml PO Q4H PRN Docusate Sodium [Colace] Med 10/13/19 15:49 Active 100 mg PO BID PRN Docusate Sodium/Sennosides [Senna Plus] Med 10/13/19 21:00 Active 1 tab PO BID Erythromycin Base [Erythromycin 0.5% Ophth Oint] Med 10/13/19 21:00 Active 0 gm EYEBOTH BEDTIME Heparin Sodium Med 10/13/19 16:00 Active 5,000 units SUBCUT Q8H Latanoprost [Xalatan 0.005% Ophth Soln] Med 10/13/19 21:00 Active 0 ml EYEBOTH BEDTIME Magnesium Hydroxide [Milk of Magnesia] Med 10/13/19 16:48 Active 30 ml PO DAILY PRN Memantine HCl/Donepezil HCl [Namzaric 28 mg-10 mg Med 10/13/19 21:00 Active Capsule] 1 tab PO BEDTIME PARoxetine [Paxil] Med 10/13/19 21:00 Active 30 mg PO BEDTIME PHENobarbitaL Med 10/13/19 21:00 Ordered 64.8 mg PO BEDTIME PHENobarbitaL [Phenobarbital] Med 10/13/19 21:00 Ordered 97.2 mg PO BEDTIME Pantoprazole [ProTONIX] Med 10/13/19 16:48 Active 40 mg PO DAILY PRN Piperacillin/Tazobactam [Piperacil-Tazobact] 4.5 gm Med 10/14/19 00:30 Active Sodium Chloride 0.9% [Normal Saline] 100 ml IV Q8H Sodium Chloride 0.9% [Saline Flush] Med 10/13/19 15:49 Active 10 ml FLUSH ASDIRECTED PRN Vancomycin [Vancocin] 1 gm Med 10/13/19 16:00 Active Sodium Chloride 0.9% [Normal Saline (AdvBag)] 250 ml IV Q12H bisacodyL [Dulcolax] Med 10/13/19 16:48 Active 10 mg RECTAL DAILY PRN levETIRAcetam [Keppra] Med 10/13/19 21:00 Active 500 mg PO BID polyethylene glycoL 3350 [MiraLAX] Med 10/13/19 17:00 Ordered DOSE gm PO Q72H Peripheral IV Insertion Adult [OM.PC] Routine Oth 10/13/19 15:49 Ordered Sequential Compression Device [OM.PC] Per Unit Routine Oth 10/13/19 15:52 Ordered Resuscitation Status Routine Resus Stat 10/13/19 15:49 Ordered Medication Orders Hydrocodone Bitart/Acetaminophen ([place] 325-5 Mg) 1 tab PO Q4H PRN PRN Reason: Pain (moderate 4-6) Bisacodyl (Dulcolax) 10 mg RECTAL DAILY PRN PRN Reason: Constipation Cholecalciferol (Vitamin D3) 25 mcg PO DAILY [facility] Cyanocobalamin (Vitamin B12) 1,000 mcg PO DAILY [facility] Docusate Sodium (Colace) 100 mg PO BID PRN PRN Reason: Constipation Erythromycin (Erythromycin 0.5% Ophth Oint) 0 gm EYEBOTH BEDTIME [facility] Guaifenesin/Phenylephrine HCl (Robitussin Dm) 10 ml PO Q4H PRN PRN Reason: COUGH Heparin Sodium (Porcine) (Heparin Sodium) 5,000 units SUBCUT Q8H [facility] Piperacillin Sod/Tazobactam (Sod 4.5 gm/ Sodium Chloride) 100 mls @ 25 mls/hr IV Q8H [facility] Vancomycin HCl 1 gm/ Sodium (Chloride) 250 mls @ 250 mls/hr IV Q12H [facility] Potassium Chloride/Dextrose/Sod Cl (D5 1/2 Ns W/ 20 Meq/L Kcl) 1,000 mls @ 75 mls/hr IV ASDIRECTED [facility] Latanoprost (Xalatan 0.005% Ophth Soln) 0 ml EYEBOTH BEDTIME [facility] Levetiracetam (Keppra) 500 mg PO BID [facility] Magnesium Hydroxide (Milk Of Magnesia) 30 ml PO DAILY PRN PRN Reason: Constipation Memantine Hcl/Donepezil 28 Mg-10 Mg Capsule 1 tab PO BEDTIME [facility] Non-Formulary Medication (Phenobarbital) 64.8 mg PO BEDTIME [facility] Non-Formulary Medication (Phenobarbital [Phenobarbital]) 97.2 mg PO BEDTIME [facility] Pantoprazole Sodium (Protonix) 40 mg PO DAILY PRN PRN Reason: gi upset Paroxetine HCl (Paxil) 30 mg PO BEDTIME [facility] Polyethylene Glycol (Miralax) gm PO Q72H [facility] Senna/Docusate Sodium (Senna Plus) 1 tab PO BID [facility] Sodium Chloride (Saline Flush) 10 ml FLUSH ASDIRECTED PRN PRN Reason: Keep Vein Open Assessment/Plan Comment:: Patient has a left hip wound and abscess. She underwent an I&D in the office. She needs IV abx. - Start Vanc and Zosyn - Reg diet - Resume Home meds - Dressing changes - most gauze Q12h - We will cotninue to monitor. - Mortality Measure Prognosis:: Good
[2019-10-13] MEDS: Heparin Sodium 5,000 Units/ML Vial SUBCUT SCH (17:53)
[2019-10-13] MEDS: D5 1/2 NS w/ 20 mEq/L KCl 1,000 ML IV SCH (17:55)
--- NOTE | 2019-10-13 20:38 | PCM.SN.2 ---
- Free Text/Narrative Note: 1999 called to room for IV start attempt X 3 #22 ga. right wrist good flush good blood return out room at 2034
[2019-10-13] MEDS ORDERED: PHENOBARBITAL 97.2 MG PO SCH (21:00)
[2019-10-13] MEDS: Latanoprost 0.005% Ophth Soln 2.5 ML Bottle EYEBOTH SCH (21:16)
[2019-10-13] MEDS: PHENobarbital 32.4 MG Tab PO SCH (21:17)
[2019-10-13] MEDS: Erythromycin Base 0.5% Ophth Oint 1 GM Tube EYEBOTH SCH (21:23)
[2019-10-13] MEDS: levETIRAcetam 500 MG Tab PO SCH (21:24)
[2019-10-13] MEDS: DONEPEZIL PO SCH (22:06)
[2019-10-13] MEDS: MEMANTINE PO SCH (22:06)
[2019-10-14] MEDS: Piperacillin/Tazobactam 4.5 GM in Sodium Chloride 0.9% 100 ML IV SCH ×3 (00:35→20:35)
[2019-10-14] MEDS: Heparin Sodium 5,000 Units/ML Vial SUBCUT SCH ×3 (00:35→16:47)
[2019-10-14] MEDS: Acetaminophen/HYDROcodone 325-5 MG Tab PO PRN ×3 (05:47→21:08)
[2019-10-14] MEDS: Cyanocobalamin (Vitamin B12) 1,000 MCG Tab PO SCH (09:15)
[2019-10-14] MEDS: levETIRAcetam 500 MG Tab PO SCH ×2 (09:16→20:28)
[2019-10-14] MEDS: Cholecalciferol (Vitamin D3) 25 MCG Tab PO SCH (09:16)
[2019-10-14] MEDS: D5 1/2 NS w/ 20 mEq/L KCl 1,000 ML IV SCH (09:18)
--- NOTE | 2019-10-14 18:18 | PCM.PN ---
- General Info Date of Service: 10/14/19 Admission Dx/Problem (Free Text): Admission Diagnosis/Problem Admission Diagnosis/Problem Wound abscess Functional Status: Reports: Pain Controlled, Tolerating Diet, Urinating - Review of Systems General: Reports: No Symptoms HEENT: Reports: No Symptoms Pulmonary: Reports: No Symptoms Cardiovascular: Reports: No Symptoms Gastrointestinal: Reports: No Symptoms Genitourinary: Reports: No Symptoms Musculoskeletal: Reports: Other (left hip wound) - Patient Data Vitals - Most Recent: Last Vital Signs Temp 97.7 F 10/14/19 14:23 Pulse 91 10/14/19 14:23 Resp 16 10/14/19 14:23 BP 110/59 L 10/14/19 14:23 Pulse Ox 100 10/14/19 14:23 Weight - Most Recent: 65.317 kg I&O - Last 24 Hours: Intake & Output 10/14/19 10/14/19 10/14/19 06:59 14:59 22:59 Intake Total 1144 240 360 Output Total 4 Balance 1140 240 360 Lab Results Last 24 Hours: Laboratory Results - last 24 hr 10/13/19 10/13/19 10/14/19 Range/Units 16:53 18:45 06:10 WBC 5.21 (3.98-10.04) K/mm3 RBC 3.35 L (3.98-5.22) M/mm3 Hgb 10.4 L (11.2-15.7) gm/dl Hct 32.1 L (34.1-44.9) % MCV 95.8 H (79.4-94.8) fl MCH 31.0 (25.6-32.2) pg MCHC 32.4 (32.2-35.5) g/dl RDW Std Deviation 41.0 (36.4-46.3) fL Plt Count 226 (182-369) K/mm3 MPV 9.4 (9.4-12.3) fl Neut % (Auto) 47.4 (34.0-71.1) % Lymph % (Auto) 42.2 (19.3-51.7) % [place] % (Auto) 6.5 (4.7-12.5) % Eos % (Auto) 3.3 (0.7-5.8) Baso % (Auto) 0.4 (0.1-1.2) % Neut # (Auto) 2.47 (1.56-6.13) K/mm3 Lymph # (Auto) 2.20 (1.18-3.74) K/mm3 [place] # (Auto) 0.34 (0.24-0.36) K/mm3 Eos # (Auto) 0.17 (0.04-0.36) K/mm3 Baso # (Auto) 0.02 (0.01-0.08) K/mm3 Sodium 143 (136-145) mEq/L Potassium 4.1 (3.5-5.1) mEq/L Chloride 104 (98-107) mEq/L Carbon Dioxide 30 (21-32) mEq/L Anion Gap 13.1 (5-15) BUN 17 (7-18) mg/dL Creatinine 0.9 (0.55-1.02) mg/dL Est Cr Clr Drug Dosing 65.45 mL/min Estimated GFR (MDRD) > 60 (>60) mL/min BUN/Creatinine Ratio 18.9 H (14-18) Glucose 75 (74-106) mg/dL Calcium 9.2 (8.5-10.1) mg/dL Total Bilirubin 0.1 L (0.2-1.0) mg/dL AST 13 L (15-37) U/L ALT 21 (14-59) U/L Alkaline Phosphatase 100 (46-116) U/L Total Protein 7.1 (6.4-8.2) g/dl Albumin 3.0 L (3.4-5.0) g/dl Globulin 4.1 gm/dL Albumin/Globulin Ratio 0.7 L (1-2) MRSA (PCR) Negative 10/14/19 Range/Units 06:10 WBC (3.98-10.04) K/mm3 RBC (3.98-5.22) M/mm3 Hgb (11.2-15.7) gm/dl Hct (34.1-44.9) % MCV (79.4-94.8) fl MCH (25.6-32.2) pg MCHC (32.2-35.5) g/dl RDW Std Deviation (36.4-46.3) fL Plt Count (182-369) K/mm3 MPV (9.4-12.3) fl Neut % (Auto) (34.0-71.1) % Lymph % (Auto) (19.3-51.7) % [place] % (Auto) (4.7-12.5) % Eos % (Auto) (0.7-5.8) Baso % (Auto) (0.1-1.2) % Neut # (Auto) (1.56-6.13) K/mm3 Lymph # (Auto) (1.18-3.74) K/mm3 [place] # (Auto) (0.24-0.36) K/mm3 Eos # (Auto) (0.04-0.36) K/mm3 Baso # (Auto) (0.01-0.08) K/mm3 Sodium 143 (136-145) mEq/L Potassium 3.9 (3.5-5.1) mEq/L Chloride 106 (98-107) mEq/L Carbon Dioxide 27 (21-32) mEq/L Anion Gap 13.9 (5-15) BUN 14 (7-18) mg/dL Creatinine 1.0 (0.55-1.02) mg/dL Est Cr Clr Drug Dosing 58.91 mL/min Estimated GFR (MDRD) 57 (>60) mL/min BUN/Creatinine Ratio 14.0 (14-18) Glucose 94 (74-106) mg/dL Calcium 8.6 (8.5-10.1) mg/dL Total Bilirubin 0.2 (0.2-1.0) mg/dL AST 14 L (15-37) U/L ALT 19 (14-59) U/L Alkaline Phosphatase 83 (46-116) U/L Total Protein 6.4 (6.4-8.2) g/dl Albumin 2.7 L (3.4-5.0) g/dl Globulin 3.7 gm/dL Albumin/Globulin Ratio 0.7 L (1-2) MRSA (PCR) Med Orders - Current: Current Medications Hydrocodone Bitart/Acetaminophen ([place] 325-5 Mg) 1 tab PO Q4H PRN PRN Reason: Pain (moderate 4-6) Last Admin: 10/14/19 13:15 Dose: 1 tab Bisacodyl (Dulcolax) 10 mg RECTAL DAILY PRN PRN Reason: Constipation Cholecalciferol (Vitamin D3) 25 mcg PO DAILY [facility] Last Admin: 10/14/19 09:16 Dose: 25 mcg Cyanocobalamin (Vitamin B12) 1,000 mcg PO DAILY [facility] Last Admin: 10/14/19 09:15 Dose: 1,000 mcg Docusate Sodium (Colace) 100 mg PO BID PRN PRN Reason: Constipation Erythromycin (Erythromycin 0.5% Ophth Oint) 0 gm EYEBOTH BEDTIME [facility] Last Admin: 10/13/19 21:23 Dose: 1 applic Guaifenesin/Phenylephrine HCl (Robitussin Dm) 10 ml PO Q4H PRN PRN Reason: COUGH Heparin Sodium (Porcine) (Heparin Sodium) 5,000 units SUBCUT Q8H [facility] Last Admin: 10/14/19 16:47 Dose: 5,000 units Piperacillin Sod/Tazobactam (Sod 4.5 gm/ Sodium Chloride) 100 mls @ 25 mls/hr IV Q8H [facility] Last Admin: 10/14/19 09:16 Dose: 25 mls/hr Vancomycin HCl 1 gm/ Sodium (Chloride) 250 mls @ 250 mls/hr IV Q12H [facility] Last Admin: 10/14/19 16:48 Dose: 250 mls/hr Potassium Chloride/Dextrose/Sod Cl (D5 1/2 Ns W/ 20 Meq/L Kcl) 1,000 mls @ 75 mls/hr IV ASDIRECTED [facility] Last Admin: 10/14/19 09:18 Dose: 75 mls/hr Latanoprost (Xalatan 0.005% Ophth Soln) 0 ml EYEBOTH BEDTIME [facility] Last Admin: 10/13/19 21:16 Dose: 1 drop Levetiracetam (Keppra) 500 mg PO BID [facility] Last Admin: 10/14/19 09:16 Dose: 500 mg Magnesium Hydroxide (Milk Of Magnesia) 30 ml PO DAILY PRN PRN Reason: Constipation Memantine Hcl/Donepezil 28 Mg-10 Mg Capsule 1 tab PO BEDTIME [facility] Last Admin: 10/13/19 22:06 Dose: 1 tab Pantoprazole Sodium (Protonix) 40 mg PO DAILY PRN PRN Reason: gi upset Paroxetine HCl (Paxil) 30 mg PO BEDTIME [facility] Last Admin: 10/13/19 21:17 Dose: 30 mg Phenobarbital (Phenobarbital) 162 mg PO BEDTIME [facility] Last Admin: 10/13/19 21:17 Dose: 162 mg Polyethylene Glycol (Miralax) 17 gm PO Q72H [facility] Last Admin: 10/13/19 18:03 Dose: 17 gm Senna/Docusate Sodium (Senna Plus) 1 tab PO BID [facility] Last Admin: 10/14/19 09:16 Dose: 1 tab Sodium Chloride (Saline Flush) 10 ml FLUSH ASDIRECTED PRN PRN Reason: Keep Vein Open Discontinued Medications Piperacillin Sod/Tazobactam (Sod 4.5 gm/ Sodium Chloride) 100 mls @ 200 mls/hr IV Q8H [facility] Piperacillin Sod/Tazobactam (Sod 4.5 gm/ Sodium Chloride) 100 mls @ 200 mls/hr IV ONETIME ONE Stop: 10/13/19 16:59 Last Admin: 10/13/19 17:55 Dose: 200 mls/hr Non-Formulary Medication (Phenobarbital [Phenobarbital]) 97.2 mg PO BEDTIME [facility] - Exam General: Alert Cardiovascular: Regular Rate, Regular Rhythm GI/Abdominal Exam: Soft, Non-Tender, No Organomegaly, No Abnormal Bruit Wound/Incisions: Other (left hip wound appears well, repacked. phlegmon still present and tender to touch. Erythema has improved.) Sepsis Event Note - Evaluation Sepsis Screening Result: No Definite Risk - Focused Exam Vital Signs: Vital Signs Temp Pulse Resp BP Pulse Ox 10/14/19 14:23 97.7 F 91 16 110/59 L 100 10/14/19 11:54 97.9 F 86 16 113/62 98 10/14/19 09:13 97.5 F 71 16 101/64 99 Date Exam was Performed: 10/14/19 Time Exam was Performed: 18:16 - Problem List Review Problem List Initiated/Reviewed/Updated: No - My Orders Last 24 Hours: My Active Orders 10/13/19 21:00 Docusate Sodium/Sennosides [Senna Plus] 1 tab PO BID Erythromycin Base [Erythromycin 0.5% Ophth Oint] 0 gm EYEBOTH BEDTIME Latanoprost [Xalatan 0.005% Ophth Soln] 0 ml EYEBOTH BEDTIME Memantine HCl/Donepezil HCl [Namzaric 28 mg-10 mg Capsule] 1 tab PO BEDTIME PARoxetine [Paxil] 30 mg PO BEDTIME PHENobarbitaL 162 mg PO BEDTIME levETIRAcetam [Keppra] 500 mg PO BID 10/14/19 00:30 Piperacillin/Tazobactam [Piperacil-Tazobact] 4.5 gm Sodium Chloride 0.9% [ Normal Saline] 100 ml IV Q8H 10/14/19 08:00 Wound Care [RC] 04,,,10/14/19 09:00 Cholecalciferol (Vitamin D3) [Vitamin D3] 25 mcg PO DAILY Cyanocobalamin (Vitamin B12) [Vitamin B12] 1,000 mcg PO DAILY 10/14/19 Dinner Regular Diet [DIET] 10/15/19 16:00 COMPREHENSIVE METABOLIC PN,CMP [CHEM] DAILY 10/16/19 16:00 COMPREHENSIVE METABOLIC PN,CMP [CHEM] DAILY 10/17/19 16:00 COMPREHENSIVE METABOLIC PN,CMP [CHEM] DAILY - Plan Plan:: Patient has a left hip wound and abscess. She underwent an I&D in the office. She needs IV abx. - Continue Vanc and Zosyn. Awaiting cultures - Reg diet - Resume Home meds - Dressing changes - most gauze Q12h - We will continue to monitor.
[2019-10-14] MEDS: PHENobarbital 32.4 MG Tab PO SCH (20:27)
--- NOTE | 2019-10-14 20:30 | PCM.SN.2 ---
- Free Text/Narrative Note: Anesthesia Note: Anesthesia requested for IV start. 20 gauge to left lower leg times one attempt with angio without wings. 2 failed attempts noted with angio with wings. Site patent, intact, and secured with tape, cling and sleeve. Site flushed with 20 ml's of normal saline.
[2019-10-14] MEDS: Latanoprost 0.005% Ophth Soln 2.5 ML Bottle EYEBOTH SCH (20:34)
[2019-10-14] MEDS: Erythromycin Base 0.5% Ophth Oint 1 GM Tube EYEBOTH SCH (20:35)
[2019-10-14] MEDS: DONEPEZIL PO SCH (22:09)
[2019-10-14] MEDS: MEMANTINE PO SCH (22:09)
[2019-10-15] MEDS: Heparin Sodium 5,000 Units/ML Vial SUBCUT SCH ×3 (00:18→16:06)
[2019-10-15] MEDS: D5 1/2 NS w/ 20 mEq/L KCl 1,000 ML IV SCH ×2 (02:36→16:40)
[2019-10-15] MEDS: Piperacillin/Tazobactam 4.5 GM in Sodium Chloride 0.9% 100 ML IV SCH ×3 (04:36→20:25)
[2019-10-15] MEDS: Acetaminophen/HYDROcodone 325-5 MG Tab PO PRN ×2 (09:06→21:37)
[2019-10-15] MEDS: levETIRAcetam 500 MG Tab PO SCH ×2 (09:06→20:24)
[2019-10-15] MEDS: Cyanocobalamin (Vitamin B12) 1,000 MCG Tab PO SCH (09:06)
[2019-10-15] MEDS: Cholecalciferol (Vitamin D3) 25 MCG Tab PO SCH (09:06)
--- NOTE | 2019-10-15 09:07 | PCM.PN ---
- General Info Date of Service: 10/15/19 Functional Status: Reports: Pain Controlled, Tolerating Diet, Urinating - Review of Systems General: Reports: No Symptoms HEENT: Reports: No Symptoms Pulmonary: Reports: No Symptoms Cardiovascular: Reports: No Symptoms Gastrointestinal: Reports: No Symptoms Genitourinary: Reports: No Symptoms Musculoskeletal: Reports: No Symptoms Skin: Reports: Other (left hip wound) - Patient Data Vitals - Most Recent: Last Vital Signs Temp 97.2 F 10/15/19 03:20 Pulse 69 10/15/19 03:20 Resp 16 10/15/19 03:20 BP 108/62 10/15/19 03:20 Pulse Ox 99 10/15/19 03:20 Weight - Most Recent: 67.041 kg I&O - Last 24 Hours: Intake & Output 10/14/19 10/15/19 10/15/19 22:59 06:59 14:59 Intake Total 1940 1450 Balance 1940 1450 Lab Results Last 24 Hours: Laboratory Results - last 24 hr 10/15/19 Range/Units 05:30 Sodium 142 (136-145) mEq/L Potassium 4.1 (3.5-5.1) mEq/L Chloride 108 H (98-107) mEq/L Carbon Dioxide 28 (21-32) mEq/L Anion Gap 10.1 (5-15) BUN 17 (7-18) mg/dL Creatinine 0.8 (0.55-1.02) mg/dL Est Cr Clr Drug Dosing 73.63 mL/min Estimated GFR (MDRD) > 60 (>60) mL/min BUN/Creatinine Ratio 21.3 H (14-18) Glucose 112 H (74-106) mg/dL Calcium 8.1 L (8.5-10.1) mg/dL Total Bilirubin 0.1 L (0.2-1.0) mg/dL AST 22 (15-37) U/L ALT 30 (14-59) U/L Alkaline Phosphatase 72 (46-116) U/L Total Protein 6.0 L (6.4-8.2) g/dl Albumin 2.5 L (3.4-5.0) g/dl Globulin 3.5 gm/dL Albumin/Globulin Ratio 0.7 L (1-2) Med Orders - Current: Current Medications Hydrocodone Bitart/Acetaminophen ([place] 325-5 Mg) 1 tab PO Q4H PRN PRN Reason: Pain (moderate 4-6) Last Admin: 10/14/19 21:08 Dose: 1 tab Bisacodyl (Dulcolax) 10 mg RECTAL DAILY PRN PRN Reason: Constipation Cholecalciferol (Vitamin D3) 25 mcg PO DAILY [facility] Last Admin: 10/14/19 09:16 Dose: 25 mcg Cyanocobalamin (Vitamin B12) 1,000 mcg PO DAILY [facility] Last Admin: 10/14/19 09:15 Dose: 1,000 mcg Docusate Sodium (Colace) 100 mg PO BID PRN PRN Reason: Constipation Erythromycin (Erythromycin 0.5% Ophth Oint) 0 gm EYEBOTH BEDTIME [facility] Last Admin: 10/14/19 20:35 Dose: 1 applic Guaifenesin/Phenylephrine HCl (Robitussin Dm) 10 ml PO Q4H PRN PRN Reason: COUGH Heparin Sodium (Porcine) (Heparin Sodium) 5,000 units SUBCUT Q8H [facility] Last Admin: 10/15/19 00:18 Dose: 5,000 units Vancomycin HCl 1 gm/ Sodium (Chloride) 250 mls @ 250 mls/hr IV Q12H [facility] Last Admin: 10/15/19 03:13 Dose: 250 mls/hr Potassium Chloride/Dextrose/Sod Cl (D5 1/2 Ns W/ 20 Meq/L Kcl) 1,000 mls @ 75 mls/hr IV ASDIRECTED [facility] Last Admin: 10/15/19 02:36 Dose: 75 mls/hr Piperacillin Sod/Tazobactam (Sod 4.5 gm/ Sodium Chloride) 100 mls @ 25 mls/hr IV Q8H [facility] Last Admin: 10/15/19 04:36 Dose: 25 mls/hr Latanoprost (Xalatan 0.005% Ophth Soln) 0 ml EYEBOTH BEDTIME [facility] Last Admin: 10/14/19 20:34 Dose: 1 drop Levetiracetam (Keppra) 500 mg PO BID [facility] Last Admin: 10/14/19 20:28 Dose: 500 mg Magnesium Hydroxide (Milk Of Magnesia) 30 ml PO DAILY PRN PRN Reason: Constipation Memantine Hcl/Donepezil 28 Mg-10 Mg Capsule 1 tab PO BEDTIME [facility] Last Admin: 10/14/19 22:09 Dose: 1 tab Pantoprazole Sodium (Protonix) 40 mg PO DAILY PRN PRN Reason: gi upset Paroxetine HCl (Paxil) 30 mg PO BEDTIME [facility] Last Admin: 10/14/19 20:27 Dose: 30 mg Phenobarbital (Phenobarbital) 162 mg PO BEDTIME [facility] Last Admin: 10/14/19 20:27 Dose: 162 mg Polyethylene Glycol (Miralax) 17 gm PO Q72H [facility] Last Admin: 10/13/19 18:03 Dose: 17 gm Senna/Docusate Sodium (Senna Plus) 1 tab PO BID [facility] Last Admin: 10/14/19 20:28 Dose: 1 tab Sodium Chloride (Saline Flush) 10 ml FLUSH ASDIRECTED PRN PRN Reason: Keep Vein Open Vancomycin HCl (Pharmacy To Dose - Vancomycin) 1 dose .XX ASDIRECTED [facility] Discontinued Medications Piperacillin Sod/Tazobactam (Sod 4.5 gm/ Sodium Chloride) 100 mls @ 25 mls/hr IV Q8H [facility] Last Admin: 10/14/19 20:35 Dose: 25 mls/hr Piperacillin Sod/Tazobactam (Sod 4.5 gm/ Sodium Chloride) 100 mls @ 200 mls/hr IV Q8H [facility] Piperacillin Sod/Tazobactam (Sod 4.5 gm/ Sodium Chloride) 100 mls @ 200 mls/hr IV ONETIME ONE Stop: 10/13/19 16:59 Last Admin: 10/13/19 17:55 Dose: 200 mls/hr Non-Formulary Medication (Phenobarbital [Phenobarbital]) 97.2 mg PO BEDTIME [facility] - Exam General: Alert Cardiovascular: Regular Rate, Regular Rhythm GI/Abdominal Exam: Soft, Non-Tender, No Organomegaly, No Distention Skin: Warm, Dry, Intact, Other (left hip wound is packed, phlegmon still present , less erythema) Sepsis Event Note - Evaluation Sepsis Screening Result: No Definite Risk - Focused Exam Vital Signs: Vital Signs Temp Pulse Resp BP Pulse Ox 10/15/19 03:20 97.2 F 69 16 108/62 99 10/15/19 00:15 98.2 F 74 14 110/61 100 Date Exam was Performed: 10/15/19 Time Exam was Performed: 09:05 - Problem List Review Problem List Initiated/Reviewed/Updated: No - My Orders Last 24 Hours: My Active Orders 10/14/19 09:00 Cholecalciferol (Vitamin D3) [Vitamin D3] 25 mcg PO DAILY Cyanocobalamin (Vitamin B12) [Vitamin B12] 1,000 mcg PO DAILY 10/14/19 Dinner Regular Diet [DIET] 10/15/19 04:00 Piperacillin/Tazobactam [Piperacil-Tazobact] 4.5 gm Sodium Chloride 0.9% [ Normal Saline] 100 ml IV Q8H 10/15/19 08:00 Pharmacy to Dose - Vancomycin 1 dose .XX ASDIRECTED 10/16/19 16:00 COMPREHENSIVE METABOLIC PN,CMP [CHEM] DAILY 10/17/19 16:00 COMPREHENSIVE METABOLIC PN,CMP [CHEM] DAILY - Plan Plan:: Patient has a left hip wound and abscess. She underwent an I&D in the office. She needs IV abx. - Continue Vanc and Zosyn. Awaiting cultures - Reg diet - Resume Home meds - Dressing changes - most gauze Q12h - We will continue to monitor.
[2019-10-15] MEDS: Latanoprost 0.005% Ophth Soln 2.5 ML Bottle EYEBOTH SCH (20:22)
[2019-10-15] MEDS: Erythromycin Base 0.5% Ophth Oint 1 GM Tube EYEBOTH SCH (20:23)
[2019-10-15] MEDS: PHENobarbital 32.4 MG Tab PO SCH (20:24)
[2019-10-15] MEDS: MEMANTINE PO SCH (21:10)
[2019-10-15] MEDS: DONEPEZIL PO SCH (21:10)
[2019-10-16] MEDS: Heparin Sodium 5,000 Units/ML Vial SUBCUT SCH ×2 (00:30→08:33)
[2019-10-16] MEDS: Piperacillin/Tazobactam 4.5 GM in Sodium Chloride 0.9% 100 ML IV SCH ×2 (04:46→12:39)
[2019-10-16] MEDS: D5 1/2 NS w/ 20 mEq/L KCl 1,000 ML IV SCH (06:51)
[2019-10-16] MEDS: Cholecalciferol (Vitamin D3) 25 MCG Tab PO SCH (08:32)
[2019-10-16] MEDS: Cyanocobalamin (Vitamin B12) 1,000 MCG Tab PO SCH (08:32)
[2019-10-16] MEDS: levETIRAcetam 500 MG Tab PO SCH (08:32)
--- NOTE | 2019-10-16 12:18 | PCM.PN ---
- General Info Date of Service: 10/16/19 Functional Status: Reports: Pain Controlled, Tolerating Diet, Urinating - Review of Systems General: Reports: No Symptoms HEENT: Reports: No Symptoms Pulmonary: Reports: No Symptoms Cardiovascular: Reports: No Symptoms Gastrointestinal: Reports: No Symptoms Genitourinary: Reports: No Symptoms Musculoskeletal: Reports: No Symptoms, Other Skin: Reports: Other (left hip wound) - Patient Data Vitals - Most Recent: Last Vital Signs Temp 97.7 F 10/16/19 08:30 Pulse 64 10/16/19 08:30 Resp 16 10/16/19 08:30 BP 144/81 H 10/16/19 08:30 Pulse Ox 100 10/16/19 08:30 Weight - Most Recent: 67.948 kg I&O - Last 24 Hours: Intake & Output 10/15/19 10/16/19 10/16/19 22:59 06:59 14:59 Intake Total 1456 1200 480 Balance 1456 1200 480 Lab Results Last 24 Hours: Laboratory Results - last 24 hr 10/15/19 Range/Units 15:14 Vancomycin Trough 17.9 (10.0-20.0) Med Orders - Current: Current Medications Hydrocodone Bitart/Acetaminophen ([place] 325-5 Mg) 1 tab PO Q4H PRN PRN Reason: Pain (moderate 4-6) Last Admin: 10/15/19 21:37 Dose: 1 tab Bisacodyl (Dulcolax) 10 mg RECTAL DAILY PRN PRN Reason: Constipation Cholecalciferol (Vitamin D3) 25 mcg PO DAILY [facility] Last Admin: 10/16/19 08:32 Dose: 25 mcg Cyanocobalamin (Vitamin B12) 1,000 mcg PO DAILY [facility] Last Admin: 10/16/19 08:32 Dose: 1,000 mcg Docusate Sodium (Colace) 100 mg PO BID PRN PRN Reason: Constipation Last Admin: 10/16/19 08:33 Dose: 100 mg Erythromycin (Erythromycin 0.5% Ophth Oint) 0 gm EYEBOTH BEDTIME [facility] Last Admin: 10/15/19 20:23 Dose: 1 applic Guaifenesin/Phenylephrine HCl (Robitussin Dm) 10 ml PO Q4H PRN PRN Reason: COUGH Heparin Sodium (Porcine) (Heparin Sodium) 5,000 units SUBCUT Q8H [facility] Last Admin: 10/16/19 08:33 Dose: 5,000 units Vancomycin HCl 1 gm/ Sodium (Chloride) 250 mls @ 250 mls/hr IV Q12H [facility] Last Admin: 10/16/19 02:59 Dose: 250 mls/hr Potassium Chloride/Dextrose/Sod Cl (D5 1/2 Ns W/ 20 Meq/L Kcl) 1,000 mls @ 75 mls/hr IV ASDIRECTED [facility] Last Admin: 10/16/19 06:51 Dose: 75 mls/hr Piperacillin Sod/Tazobactam (Sod 4.5 gm/ Sodium Chloride) 100 mls @ 25 mls/hr IV Q8H [facility] Last Admin: 10/16/19 04:46 Dose: 25 mls/hr Latanoprost (Xalatan 0.005% [facility]) 0 ml EYEBOTH BEDTIME [facility] Last Admin: 10/15/19 20:22 Dose: 1 drop Levetiracetam (Keppra) 500 mg PO BID [facility] Last Admin: 10/16/19 08:32 Dose: 500 mg Magnesium Hydroxide (Milk Of Magnesia) 30 ml PO DAILY PRN PRN Reason: Constipation Memantine Hcl/Donepezil 28 Mg-10 Mg Capsule 1 tab PO BEDTIME [facility] Last Admin: 10/15/19 21:10 Dose: 1 tab Pantoprazole Sodium (Protonix) 40 mg PO DAILY PRN PRN Reason: gi upset Paroxetine HCl (Paxil) 30 mg PO BEDTIME [facility] Last Admin: 10/15/19 20:23 Dose: 30 mg Phenobarbital (Phenobarbital) 162 mg PO BEDTIME [facility] Last Admin: 10/15/19 20:24 Dose: 162 mg Polyethylene Glycol (Miralax) 17 gm PO Q72H [facility] Last Admin: 10/13/19 18:03 Dose: 17 gm Senna/Docusate Sodium (Senna Plus) 1 tab PO BID [facility] Last Admin: 10/16/19 08:32 Dose: 1 tab Sodium Chloride (Saline Flush) 10 ml FLUSH ASDIRECTED PRN PRN Reason: Keep Vein Open Vancomycin HCl (Pharmacy To Dose - Vancomycin) 1 dose .XX ASDIRECTED [facility] Discontinued Medications Piperacillin Sod/Tazobactam (Sod 4.5 gm/ Sodium Chloride) 100 mls @ 25 mls/hr IV Q8H [facility] Last Admin: 10/14/19 20:35 Dose: 25 mls/hr Piperacillin Sod/Tazobactam (Sod 4.5 gm/ Sodium Chloride) 100 mls @ 200 mls/hr IV Q8H [facility] Piperacillin Sod/Tazobactam (Sod 4.5 gm/ Sodium Chloride) 100 mls @ 200 mls/hr IV ONETIME ONE Stop: 10/13/19 16:59 Last Admin: 10/13/19 17:55 Dose: 200 mls/hr Non-Formulary Medication (Phenobarbital [Phenobarbital]) 97.2 mg PO BEDTIME [facility] - Exam General: Alert Cardiovascular: Regular Rate, Regular Rhythm GI/Abdominal Exam: Normal Bowel Sounds, Soft, Non-Tender, No Organomegaly Wound/Incisions: Other (wound appears well, no drainage. granulation tissues forming. cellulitis and induration is present but improving.) Sepsis Event Note - Evaluation Sepsis Screening Result: No Definite Risk - Focused Exam Vital Signs: Vital Signs Temp Pulse Resp BP Pulse Ox 10/16/19 08:30 97.7 F 64 16 144/81 H 100 10/16/19 07:28 97.2 F 63 19 143/77 H 96 10/16/19 03:59 97.5 F 78 16 139/74 97 Date Exam was Performed: 10/16/19 Time Exam was Performed: 12:14 - Problem List Review Problem List Initiated/Reviewed/Updated: No - My Orders Last 24 Hours: My Active Orders 10/15/19 22:50 RT BiPAP/CPAP [RC] ASDIRECTED 10/16/19 16:00 COMPREHENSIVE METABOLIC PN,CMP [CHEM] DAILY 10/17/19 16:00 COMPREHENSIVE METABOLIC PN,CMP [CHEM] DAILY - Plan Plan:: Patient has a left hip wound and abscess. She underwent an I&D in the office. She needs IV abx. - Cultures show MRSA, sensitive for Bactrim/Clinda. We will convert to Bactrim upon discharge - Reg diet - Resume Home meds - Dressing changes - most gauze Q12h - May discharge today or tomorrow.
--- NOTE | 2019-10-16 12:34 | PCM.DCSUM1 ---
Discharge Summary - Hospital Course Free Text/Narrative:: Patient developed left hip cellulitis that progressed into an abscess. I&D was performed and she was admitted for IV antibiotics and wound care. Cultures showed MRSA sensitive to Bactrim. She was converted to Bactrim and discharged in stable condition. She will follow up in 1 week. Diagnosis: Stroke: No - Discharge Data Discharge Date: 10/16/19 Discharge Disposition: DC/Tfer to [facility] Condition: Good - Referral to Home Health Date of Face to Face Encounter: 10/16/19 Primary Care Physician: Elly Bullock MD Skilled Need: Wound care - Patient Instructions Diet: Regular Diet as Tolerated Activity: As Tolerated Driving: Do Not Drive Showering/Bathing: May Shower Wound/Incision Care: Change Dressing Daily Notify Provider of: Fever, Increased Pain, Swelling and Redness - Discharge Plan *PRESCRIPTION DRUG MONITORING PROGRAM REVIEWED*: No *COPY OF PRESCRIPTION DRUG MONITORING REPORT IN PATIENT CANDACE: No Prescriptions/Med Rec: Sulfamethoxazole/Trimethoprim [Bactrim Ds Tablet] 1 tab PO BID 14 Days #28 tablet Home Medications: Home Meds Calcium Carbonate [Oyster Shell Calcium] 500 mg PO TID 11/01/17 [History] Carbamide Peroxide [Murine Ear Drops] 6 drop EARBOTH WE 11/01/17 [History] Cholecalciferol (Vitamin D3) [Vitamin D3] 1,000 unit PO DAILY 11/01/17 [History] Erythromycin Base [Erythromycin 0.5% Ophth Oint] 1 drop EYEBOTH BEDTIME [History] Memantine HCl/Donepezil HCl [Namzaric 28 mg-10 mg Capsule] 1 tab PO BEDTIME 05/11 [History] Omeprazole 1 tab PO DAILY PRN 11/01/17 [History] PARoxetine HCL [Paroxetine HCl] 30 mg PO BEDTIME 11/01/17 [History] PHENobarbitaL [Phenobarbital] 64.8 mg PO BEDTIME 11/01/17 [History] PHENobarbitaL [Phenobarbital] 97.2 mg PO BEDTIME 11/01/17 [History] levETIRAcetam [Keppra] 500 mg PO BID 11/01/17 [History] Acetaminophen [Tylenol] 650 mg PO Q4H PRN 08/14/19 [History] Cyanocobalamin (Vitamin B-12) [Vitamin B-12] 1,000 mcg PO DAILY 08/14/19 [ History] Latanoprost 1 drop EYEBOTH BEDTIME 08/14/19 [History] bisacodyL [Dulcolax] 10 mg RECTAL DAILY PRN 08/14/19 [History] polyethylene glycoL 3350 [MiraLAX] 1 dose PO Q72H 08/14/19 [History] Dextromethorphan/guaiFENesin [Robitussin DM] 20 ml PO Q6H PRN 10/13/19 [History] Mag Hydrox/Aluminum Hyd/Simeth [Mylanta Maximum Strength Liq] 2 - 4 tsp PO Q2HR PRN 10/13/19 [History] Magnesium Hydroxide [Milk of Magnesia] 2 - 4 tbsp PO DAILY PRN 10/13/19 [History ] Multivits w-Min/Ferrous Gluc [Certavite-Antioxidant Liquid] 1 tab PO DAILY 10/12 [History] Pseudoephedrine [Sudogest] 1 tab PO Q4HR PRN 10/13/19 [History] Sennosides/Docusate Sodium [Senna-S 8.6-50 mg Tablet] 17.2 mg PO BID 10/13/19 [ History] Sulfamethoxazole/Trimethoprim [Bactrim Ds Tablet] 1 tab PO BID 14 Days #28 tablet 10/16/19 [Rx] Oxygen Therapy Mode: Room Air Patient Handouts: Wound Care, Adult Referrals: Elly Bullock MD [Primary Care Provider] - (Follow up with Dr. Ponce next week) - Discharge Summary/Plan Comment DC Time >30 min.: No - Patient Data Vitals - Most Recent: Last Vital Signs Temp 97.7 F 10/16/19 08:30 Pulse 64 10/16/19 08:30 Resp 16 10/16/19 08:30 BP 144/81 H 10/16/19 08:30 Pulse Ox 100 10/16/19 08:30 Weight - Most Recent: 67.948 kg I&O - Last 24 hours: Intake & Output 10/15/19 10/16/19 10/16/19 22:59 06:59 14:59 Intake Total 1456 1200 480 Balance 1456 1200 480 Lab Results - Last 24 hrs: Laboratory Results - last 24 hr 10/15/19 Range/Units 15:14 Vancomycin Trough 17.9 (10.0-20.0) Med Orders - Current: Current Medications Hydrocodone Bitart/Acetaminophen ([place] 325-5 Mg) 1 tab PO Q4H PRN PRN Reason: Pain (moderate 4-6) Last Admin: 10/15/19 21:37 Dose: 1 tab Bisacodyl (Dulcolax) 10 mg RECTAL DAILY PRN PRN Reason: Constipation Cholecalciferol (Vitamin D3) 25 mcg PO DAILY [facility] Last Admin: 10/16/19 08:32 Dose: 25 mcg Cyanocobalamin (Vitamin B12) 1,000 mcg PO DAILY [facility] Last Admin: 10/16/19 08:32 Dose: 1,000 mcg Docusate Sodium (Colace) 100 mg PO BID PRN PRN Reason: Constipation Last Admin: 10/16/19 08:33 Dose: 100 mg Erythromycin (Erythromycin 0.5% Ophth Oint) 0 gm EYEBOTH BEDTIME [facility] Last Admin: 10/15/19 20:23 Dose: 1 applic Guaifenesin/Phenylephrine HCl (Robitussin Dm) 10 ml PO Q4H PRN PRN Reason: COUGH Heparin Sodium (Porcine) (Heparin Sodium) 5,000 units SUBCUT Q8H [facility] Last Admin: 10/16/19 08:33 Dose: 5,000 units Vancomycin HCl 1 gm/ Sodium (Chloride) 250 mls @ 250 mls/hr IV Q12H [facility] Last Admin: 10/16/19 02:59 Dose: 250 mls/hr Potassium Chloride/Dextrose/Sod Cl (D5 1/2 Ns W/ 20 Meq/L Kcl) 1,000 mls @ 75 mls/hr IV ASDIRECTED [facility] Last Admin: 10/16/19 06:51 Dose: 75 mls/hr Latanoprost (Xalatan 0.005% Ophth Soln) 0 ml EYEBOTH BEDTIME [facility] Last Admin: 10/15/19 20:22 Dose: 1 drop Levetiracetam (Keppra) 500 mg PO BID [facility] Last Admin: 10/16/19 08:32 Dose: 500 mg Magnesium Hydroxide (Milk Of Magnesia) 30 ml PO DAILY PRN PRN Reason: Constipation Memantine Hcl/Donepezil 28 Mg-10 Mg Capsule 1 tab PO BEDTIME [facility] Last Admin: 10/15/19 21:10 Dose: 1 tab Pantoprazole Sodium (Protonix) 40 mg PO DAILY PRN PRN Reason: gi upset Paroxetine HCl (Paxil) 30 mg PO BEDTIME [facility] Last Admin: 10/15/19 20:23 Dose: 30 mg Phenobarbital (Phenobarbital) 162 mg PO BEDTIME [facility] Last Admin: 10/15/19 20:24 Dose: 162 mg Polyethylene Glycol (Miralax) 17 gm PO Q72H [facility] Last Admin: 10/13/19 18:03 Dose: 17 gm Senna/Docusate Sodium (Senna Plus) 1 tab PO BID [facility] Last Admin: 10/16/19 08:32 Dose: 1 tab Sodium Chloride (Saline Flush) 10 ml FLUSH ASDIRECTED PRN PRN Reason: Keep Vein Open Vancomycin HCl (Pharmacy To Dose - Vancomycin) 1 dose .XX ASDIRECTED [facility] Discontinued Medications Piperacillin Sod/Tazobactam (Sod 4.5 gm/ Sodium Chloride) 100 mls @ 25 mls/hr IV Q8H [facility] Last Admin: 10/14/19 20:35 Dose: 25 mls/hr Piperacillin Sod/Tazobactam (Sod 4.5 gm/ Sodium Chloride) 100 mls @ 200 mls/hr IV Q8H [facility] Piperacillin Sod/Tazobactam (Sod 4.5 gm/ Sodium Chloride) 100 mls @ 200 mls/hr IV ONETIME ONE Stop: 10/13/19 16:59 Last Admin: 10/13/19 17:55 Dose: 200 mls/hr Piperacillin Sod/Tazobactam (Sod 4.5 gm/ Sodium Chloride) 100 mls @ 25 mls/hr IV Q8H [facility] Last Admin: 10/16/19 04:46 Dose: 25 mls/hr Non-Formulary Medication (Phenobarbital [Phenobarbital]) 97.2 mg PO BEDTIME [facility]
[2019-10-16 14:55] VITALS: BP 132/67; PULSE 68
== END 2019-10-16 14:50 | DRG 603 ==
LOC: JD.MS 15:05
PROVIDERS: ADMIT Surgery; ATTEND Surgery
DX: L03.116 Cellulitis of left lower limb (principal); D69.3 Immune thrombocytopenic purpura; L02.416 Cutaneous abscess of left lower limb; B95.62 Methicillin resistant Staphylococcus aureus infection as the cause of diseases classified elsewhere; G47.30 Sleep apnea, unspecified; G80.9 Cerebral palsy, unspecified; F03.90 Unspecified dementia, unspecified severity, without behavioral disturbance, psychotic disturbance, mood disturbance, and anxiety; F32.9 Major depressive disorder, single episode, unspecified; L89.212 Pressure ulcer of right hip, stage 2; Z98.51 Tubal ligation status; Z98.890 Other specified postprocedural states; Z88.6 Allergy status to analgesic agent; Z88.8 Allergy status to other drugs, medicaments and biological substances; Z79.899 Other long term (current) drug therapy; Z99.81 Dependence on supplemental oxygen; Z99.3 Dependence on wheelchair; Z89.022 Acquired absence of left finger(s); Z87.891 Personal history of nicotine dependence
CPT/HCPCS: 36415; 80053; 80202; 85025; 87641; A9270-GY; J1644; J2543; J3370; J3480; J7050

== ENCOUNTER 2021-11-18 13:27 | Emergency (ER) | payer MEDICARE, MEDICAID ==
[2021-11-18 13:49] VITALS: BP 149/107; PULSE 89
[2021-11-18] MEDS ORDERED: Sodium Chloride 0.9% 10 ML Syringe FLUSH PRN (14:19)
== END 2021-11-18 17:00 | disposition home or self-care (01) ==
LOC: JD.ED 13:27
DX: R41.82 Altered mental status, unspecified (principal); Z79.899 Other long term (current) drug therapy; Z88.6 Allergy status to analgesic agent; Z88.8 Allergy status to other drugs, medicaments and biological substances
CPT/HCPCS: 36415; 71045; 80053; 80177; 80184; 81003; 83735; 85025; 86140; 99285; J3490

== ENCOUNTER 2023-11-18 10:35 | Inpatient (IN) | payer MEDICARE, MEDICAID ==
[2023-11-18] MEDS: Albuterol/Ipratropium 3.0-0.5 MG/3 ML Neb Soln NEB ONE (11:08)
[2023-11-18] MEDS: Sodium Chloride 0.9% 10 ML Syringe FLUSH PRN (11:22)
[2023-11-18] MEDS: methylPREDNISolone Sodium Succinate 125 MG/2 ML SDV IVPUSH ONE (11:22)
[2023-11-18] MEDS: Sodium Chloride 0.9% 1,000 ML IV ONE (11:30)
[2023-11-18 12:29] LABS: BASOPHILS PERCENT AUTO 0.2 % (0.0-1.0); HEMATOCRIT 54.5 % (37.0-47.0); HEMOGLOBIN 17.5 gm/dl (12.0-16.0); IMMATURE GRAN ABSOLUTE AUTO 0.02 K/mm3 (0.00-0.05); IMMATURE GRAN PERCENT AUTO 0.2 % (0.0-0.4); LYMPHOCYTES ABSOLUTE AUTO 2.9 K/mm3 (1.0-4.8); LYMPHOCYTES PERCENT AUTO 30.1 % (24.0-44.0); MEAN CORPUSCULAR HEMOGLOBIN 31.5 pg (28.0-32.0); MEAN CORPUSCULAR HGB CONC 32.1 g/dl (32.0-36.0); MEAN CORPUSCULAR VOLUME 98.2 fl (83.0-99.0); MEAN PLATELET VOLUME 12.3 fl (9.4-12.3); MONOCYTES ABSOLUTE AUTO 0.8 K/mm3 (0.0-0.8); MONOCYTES PERCENT AUTO 8.5 % (0.0-8.0); NEUTROPHILS ABSOLUTE AUTO 5.8 K/mm3 (1.8-7.7); PLATELET COUNT,PLT 119 K/mm3 (150-400); RED BLOOD CELL COUNT 5.55 M/mm3 (4.10-5.30); WHITE BLOOD CELL COUNT,WBC 9.51 K/mm3 (3.9-11.3)
[2023-11-18 13:08] LABS: APPEARANCE,URINE SLT CLOUDY (Clear); BILIRUBIN,URINE 1+ (Negative); COLOR,URINE YELLOW (Yellow); GLUCOSE,URINE NEGATIVE (Negative); KETONES,URINE TRACE (Negative); LEUKOCYTE ESTERASE,URINE 3+ (Negative); NITRITE,URINE NEGATIVE (Negative); OCCULT BLOOD,URINE TRACE-LYSED (Negative); PROTEIN,URINE 1+ (Negative); UROBILINOGEN,URINE 0.2 (0.2-1.0)
[2023-11-18 13:12] LABS: AMORPHOUS SEDIMENT,URINE FEW /hpf (NOT SEEN); BACTERIA,URINE MANY /hpf (FEW); EPITHELIAL CELLS,URINE 0-5 /hpf (0-5); MUCUS,URINE FEW /hpf (FEW); WBC,URINE 50-75 /hpf (0-5)
[2023-11-18 13:15] LABS: ALBUMIN 4.1 g/dl (3.4-5.0); ANION GAP 14.1 (5-15); BILIRUBIN TOTAL 0.5 mg/dL (0.2-1.0); C-REACTIVE PROTEIN 1.44 mg/dL (<0.30); CALCIUM 10.6 mg/dL (8.5-10.1); CREATININE 1.7 mg/dL (0.55-1.02); EST CRCL DRUG DOSING (CG) 32.94 mL/min; MAGNESIUM 2.5 mg/dL (1.8-2.4); POTASSIUM,K 4.1 mEq/L (3.5-5.1); PROTEIN TOTAL,TP 8.3 g/dl (6.4-8.2)
[2023-11-18] MEDS: cefTRIAXone 2 GM in Sodium Chloride 0.9% 100 ML IV ONE (14:25)
[2023-11-18] MEDS ORDERED: Morphine 2 MG/ML SYRINGE IVPUSH PRN (14:54)
[2023-11-18] MEDS ORDERED: Acetaminophen 325 MG Tab PO PRN (14:54)
[2023-11-18] MEDS ORDERED: Docusate Sodium 100 MG Cap PO PRN (14:54)
[2023-11-18] MEDS ORDERED: Ondansetron 4 MG/2 ML SDV IV PRN (14:54)
[2023-11-18] MEDS ORDERED: hydrALAZINE 20 MG/ML SDV IVPUSH PRN (15:04)
[2023-11-18] MEDS: Dextrose 5%-0.45% NaCl 1,000 ML IV SCH (16:09)
[2023-11-18 16:31] LABS: MAGNESIUM 2.5 mg/dL (1.8-2.4); PHOSPHORUS 4.4 mg/dL (2.6-4.7)
[2023-11-18 16:52] LABS: TSH 1.916 uIU/mL (0.358-3.74)
[2023-11-18 17:13] LABS: LACTIC ACID 1.9 mmol/L (0.4-2.0)
[2023-11-18] MEDS ORDERED: Bisacodyl 10 MG Supp RECTAL PRN (18:52)
[2023-11-18] MEDS: PHENobarbital 32.4 MG Tab PO SCH (22:36)
[2023-11-18] MEDS: Rosuvastatin 10 MG Tab PO SCH (22:36)
[2023-11-18] MEDS: levETIRAcetam 500 MG Tab PO SCH (22:36)
[2023-11-18] MEDS: Erythromycin Base 0.5% Ophth Oint 1 GM Tube EYEBOTH SCH (23:22)
[2023-11-19 06:25] LABS: HEMATOCRIT 49.2 % (37.0-47.0); HEMOGLOBIN 15.5 gm/dl (12.0-16.0); MEAN CORPUSCULAR HEMOGLOBIN 31.1 pg (28.0-32.0); MEAN CORPUSCULAR HGB CONC 31.5 g/dl (32.0-36.0); MEAN CORPUSCULAR VOLUME 98.6 fl (83.0-99.0); MEAN PLATELET VOLUME 12.9 fl (9.4-12.3); PLATELET COUNT,PLT 122 K/mm3 (150-400); RED BLOOD CELL COUNT 4.99 M/mm3 (4.10-5.30); WHITE BLOOD CELL COUNT,WBC 9.43 K/mm3 (3.9-11.3)
[2023-11-19 06:52] LABS: A/G RATIO 0.9 (1-2); ALBUMIN 3.4 g/dl (3.4-5.0); ANION GAP 10.6 (5-15); BILIRUBIN TOTAL 0.3 mg/dL (0.2-1.0); BUN/CREATININE RATIO 43.3 (14-18); CALCIUM 9.7 mg/dL (8.5-10.1); CREATININE 1.2 mg/dL (0.55-1.02); EST CRCL DRUG DOSING (CG) 46.66 mL/min; POTASSIUM,K 3.6 mEq/L (3.5-5.1); PROTEIN TOTAL,TP 7.2 g/dl (6.4-8.2)
[2023-11-19] MEDS: Multivitamin Tab PO SCH (08:12)
[2023-11-19] MEDS: Psyllium Husk Powder Sugar Free 5.85 GM Packet PO SCH (08:12)
[2023-11-19] MEDS: Venlafaxine 75 MG Cap.ER PO SCH (08:12)
[2023-11-19] MEDS: Cyanocobalamin (Vitamin B12) 1,000 MCG Tab PO SCH (08:13)
[2023-11-19] MEDS ORDERED: Dextrose 5% in Water 1,000 ML IV SCH (14:30)
[2023-11-19] MEDS: cefTRIAXone 1 GM in Sodium Chloride 0.9% 100 ML IV SCH (14:31)
[2023-11-19] MEDS ORDERED: cefTRIAXone 1 GM Vial IM SCH (15:00)
[2023-11-19] MEDS ORDERED: Potassium Chloride 20 MEQ in Dextrose 5% in Water 1,000 ML IV SCH ×3 (15:30→18:45)
[2023-11-19] MEDS: levETIRAcetam 500 MG/5 ML SDV IVPUSH ONE (15:37)
[2023-11-19] MEDS: Potassium Chloride 20 MEQ in Dextrose 5% in Water 1,000 ML IV SCH (16:05)
[2023-11-19] MEDS: PHENobarbital Sodium 65 MG/ML SDV IVPUSH SCH (21:01)
[2023-11-19] MEDS: levETIRAcetam 500 MG/5 ML SDV IVPUSH SCH (21:02)
[2023-11-19] MEDS: Dextrose 5% in Water 1,000 ML IV SCH (23:54)
[2023-11-20] MEDS: Acetaminophen 650 MG Supp RECTAL PRN (01:14)
[2023-11-20 07:25] LABS: A/G RATIO 0.9 (1-2); ALBUMIN 2.9 g/dl (3.4-5.0); ANION GAP 8.9 (5-15); BILIRUBIN TOTAL 0.3 mg/dL (0.2-1.0); BUN/CREATININE RATIO 37.8 (14-18); CREATININE 0.9 mg/dL (0.55-1.02); EST CRCL DRUG DOSING (CG) 62.22 mL/min; MAGNESIUM 1.7 mg/dL (1.8-2.4); POTASSIUM,K 2.9 mEq/L (3.5-5.1)
[2023-11-20] MEDS: Magnesium Sulfate/Water 2 GM in Premix Bag 1 BAG IV ONE (08:42)
[2023-11-20] MEDS: Potassium Chloride 10 MEQ in Premix Bag 1 BAG IV SCH (08:43)
[2023-11-20] MEDS ORDERED: LORazepam 1 MG Tab PO PRN (16:10)
[2023-11-20] MEDS ORDERED: Morphine 2 MG/ML SYRINGE IVPUSH PRN (16:10)
[2023-11-20] MEDS: Latanoprost 0.005% Ophth Soln 2.5 ML Bottle EYEBOTH SCH (21:20)
[2023-11-21] MEDS: LORazepam 2 MG/ML SDV IV PRN (11:46)
[2023-11-22] MEDS: Morphine 2 MG/ML SYRINGE IVPUSH PRN (08:25)
[2023-11-22] MEDS: levETIRAcetam 500 MG/5 ML SDV IVPUSH ONE (13:14)
[2023-11-22 15:46] LABS: KEPPRA 16 ug/mL (10-40)
[2023-11-22] MEDS: levETIRAcetam 500 MG/5 ML SDV IVPUSH SCH (21:15)
[2023-11-22] MEDS: Scopalamine 1mg/3day Transdermal Patch TRDERM PRN (22:34)
[2023-11-23] MEDS: Acetaminophen 650 MG Supp RECTAL PRN (23:26)
[2023-11-24] MEDS ORDERED: Glycopyrrolate 0.2 MG/ML SDV IVPUSH PRN (14:15)
[2023-11-25 08:01] VITALS: BP 147/90; PULSE 95
[2023-11-25] MEDS: Atropine 1% Ophth Soln 5 ML Bottle SL PRN (08:59)
== END 2023-11-25 14:05 | disposition home or self-care (01) | DRG 690 ==
LOC: JD.ED 10:35 → JD.MS 14:54
PROVIDERS: ADMIT Internal Medicine; ATTEND Internal Medicine
PROC: 5A09357 Assistance with Respiratory Ventilation, Less than 24 Consecutive Hours, Continuous Positive Airway Pressure (ICD-10-PCS; principal; 2023-11-18)
DX: N30.00 Acute cystitis without hematuria (principal); R41.82 Altered mental status, unspecified; Z79.899 Other long term (current) drug therapy; E87.0 Hyperosmolality and hypernatremia; Z88.5 Allergy status to narcotic agent; F03.93 Unspecified dementia, unspecified severity, with mood disturbance; N17.9 Acute kidney failure, unspecified; G47.33 Obstructive sleep apnea (adult) (pediatric); Z51.5 Encounter for palliative care; Z66 Do not resuscitate; E86.0 Dehydration; E83.52 Hypercalcemia; D69.6 Thrombocytopenia, unspecified; B96.1 Klebsiella pneumoniae [K. pneumoniae] as the cause of diseases classified elsewhere; G40.909 Epilepsy, unspecified, not intractable, without status epilepticus; E87.8 Other disorders of electrolyte and fluid balance, not elsewhere classified; R74.01 Elevation of levels of liver transaminase levels; Z88.6 Allergy status to analgesic agent; Z88.8 Allergy status to other drugs, medicaments and biological substances; Z99.3 Dependence on wheelchair; Z98.51 Tubal ligation status; Z89.022 Acquired absence of left finger(s)
CPT/HCPCS: 36415; 70450; 71045; 80053; 81001; 83605; 83735 ×2; 84100; 84443; 84484; 85025; 86140; 87086; 87088; 87186; 93005; 94640; 96361; 96365; 96375; 99285; C1758; J0696; J2930; J3490 ×2; J7030; 51798; 80177; 80184; 81003; 82947; 85027; 87040; 87641; 93010; 94761; A9270-GY; J1953; J2060; J2270; J2560; J3475; J3480; J7042; J7060; J7620-GY